=== PATIENT | female | born 1950 ===

== ENCOUNTER 2022-04-14 15:32 | Inpatient (IN) | payer MEDICARE ==
--- NOTE | 2022-04-14 15:44 | Emergency Department Report ---
HPI - General Time Seen by Provider: 04/14/22 15:34 - HPI HPI: Room 2 The patient is a 72-year-old female present with a chief complaint of diffuse weakness. EMS was called by family for patient complaining of weakness. EMS states upon arrival patient found to be hypoxic in the mid 80s and started on a nonrebreather. Attempted to have family assist him with neurologic exam but the patient did not follow commands. In the ED we attempted to use a language line to obtain a history from the patient but the patient does not answer or sometimes is very soft-spoken and does not give any audible answers. ED Past Medical Hx - Past Medical History Hx Hypertension: Yes - Surgical History Past Surgical History?: No - Family History Family history: no significant - Social History Smoking Status: Unknown if ever smoked ED Review of Systems ROS: Stated complaint: STROKE Other details as noted in HPI Comment: Unobtainable due to pts medical conditions Physical Exam - Physical Exam Physical Exam: GENERAL: The patient is well-developed well-nourished female lying on stretcher not appearing to be in acute distress. [] HEENT: Normocephalic. Atraumatic. Extraocular motions are intact. Patient has moist mucous membranes. NECK: Supple. Trachea midline CHEST/LUNGS: Clear to auscultation. There is no respiratory distress noted. HEART/CARDIOVASCULAR: Regular. There is no tachycardia. There is no gallop rub or murmur. ABDOMEN: Abdomen is soft, nontender. Patient has normal bowel sounds. There is no abdominal distention. SKIN: There is no rash. There is no edema. There is no diaphoresis. NEURO: The patient is awake and makes eye contact but is very soft-spoken. Patient does not follow commands. MUSCULOSKELETAL: There is no evidence of acute injury. ED Medical Decision Making - Lab Data Result diagrams: 04/14/22 16:16 04/14/22 16:16 - Radiology Data Radiology results: report reviewed (CT head, CTA brain, CTA neck), image revie wed (CT head, CTA brain, CTA neck) [facility] [address] [place] [address] Cat Scan Report Signed Patient: FILIPPO SIGALA MR#: [id number] : 1950 Acct:[id number] Age/Sex: 72 / F ADM Date: 04/14/22 Loc: ED Attending Dr: Ordering Physician: MEKA GUTIERREZ MD Date of Service: 04/14/22 Procedure(s): CT angio neck Accession Number(s): [id number] cc: MEKA GUTIERREZ MD CTA NECK WITH CONTRAST HISTORY: Weakness COMPARISON: None. TECHNIQUE: Routine CTA of the neck was performed. 3-D/MIP reformats were postprocessed. Percentage stenosis is determined by direct quantitative measurements of diseased internal carotid artery diameter compared with normal distal internal carotid artery reference segments or by criteria similar to NASCET where applicable.All CT scans at this location are performed using CT dose reduction for ALARA by means of automated exposure control CONTRAST: 100 ml of Omnipaque 350 FINDINGS: Venous contamination obscuring the details Aortic arch: No significant abnormality. Cervical vertebral arteries: No significant abnormality. Common carotid arteries: No significant abnormality. Carotid bifurcations: Normal Cervical internal carotid arteries: No significant abnormality. Additional findings: None. IMPRESSION: 1. No significant abnormality. CTA HEAD WITH CONTRAST TECHNIQUE: Routine non-contrast CT Head, CTA of the head and post-contrast CT Head are performed. 3-D/MIP reformats postprocessed. All CT scans at this location are performed using CT dose reduction for ALARA by means of automated exposure control CONTRAST: 100 ml of Omnipaque 350 FINDINGS: CTA Head: Intracranial vertebral arteries: No significant abnormality. Basilar artery: No significant abnormality. Posterior cerebral arteries: No significant abnormality. Right posterior communicating artery continues as right posterior cerebral artery Intracranial internal carotid arteries: No significant abnormality. Vascular calcification Anterior cerebral arteries: No significant abnormality. Middle cerebral arteries: No significant abnormality. Dural venous sinuses:Not optimally opacified. No significant abnormality. Additional findings: None. IMPRESSION: 1. No significant abnormality. Signer Name: Birdie Carrillo MD Signed: 04/14/2022 5:56 PM Workstation Name: [email or web address] Transcribed By: BS Dictated By: Birdie Pringle MD Electronically Authenticated By: Birdie Pringle MD Signed Date/Time: 04/14/221755 DD/ 48 TD/TT: Print Cancel [facility] [address] [place] [address] Cat Scan Report Signed Patient: FILIPPO SIGALA MR#: [id number] : 1950 Acct:[id number] Age/Sex: 72 / F ADM Date: 04/14/22 Loc: ED Attending Dr: Ordering Physician: MEKA GUTIERREZ MD Date of Service: 04/14/22 Procedure(s): CT head/brain wo con Accession Number(s): [id number] cc: MEKA GUTIERREZ MD NONENHANCED CT SCAN OF THE HEAD: INDICATION / CLINICAL INFORMATION: 72 years Female; AMS. TECHNIQUE: Routine CT head without contrast. All CT scans at this location are performed using CT dose reduction for ALARA by means of automated exposure control. Some of the images are marred by motion related artifacts COMPARISON: None. FINDINGS: BRAIN / INTRACRANIAL CONTENTS: No intracerebral hemorrhage or stroke mimics No chronic intracranial sequela from the trauma No acute hemorrhage, mass effect, midline shift, hydrocephalus, or acute, large territorial infarct. No chronic infarct or encephalomalacia. Normal brain volume and ventricular/sulcal size for age. Confluent periventricular low-attenuation areas in both cerebral hemispheres due to chronic small vessel disease CRANIOCERVICAL JUNCTION: No significant abnormality. ORBITS: No significant abnormality of visualized orbits. SINUSES / MASTOIDS: No significant abnormality of the visualized paranasal sinuses or mastoid air cells. ADDITIONAL FINDINGS: None. IMPRESSION: Motion related artifacts obscuring the details No intracerebral hemorrhage or stroke mimics No chronic sequela from the trauma Extensive periventricular low-attenuation areas due to chronic small vessel disease Signer Name: Birdie Carrillo MD Signed: 04/14/2022 5:49 PM Workstation Name: [email or web address] Transcribed By: BS Dictated By: Birdie Pringle MD Electronically Authenticated By: Birdie Pringle MD Signed Date/Time: 04/14/221748 DD/ 45 TD/TT: - Differential Diagnosis UTI, pneumonia, electrolyte imbalance, hypothyroidism, ICH Critical care attestation.: If time is entered above; I have spent that time in minutes in the direct care of this critically ill patient, excluding procedure time. ED Disposition Clinical Impression: Altered mental status, Hyponatremia Disposition: ADMITTED INPATIENT Is pt being admited?: Yes Does the pt Need Aspirin: No Condition: Fair Time of Disposition: 18:27 (Care transferred to hospitalist (Dr. Nix))
--- NOTE | 2022-04-14 16:03 | Consultation ---
History of Present Illness Consult date: 04/14/22 History of present illness: [facility] Consult Note # Demographics Consult Type: Acute Stroke Level 1 (0-4.5 hrs) Patient Location: Emergency Room First Name: Rika Last Name: Urban Date of : 1950 Age: 72 Gender: Female Facility: [facility] Time of Initial Page ( Time): 04/14/2022, 15:15 Time of Return Call ( Time): 04/14/2022, 15:16 # HPI Chief Complaint: altered mental state weakness (focal) Left-sided weakness two weeks ago with resolution History: Patient had difficulties getting out of bed for the past two days. Last Known Normal: I have collected independent history specific to time last normal or last known well. We have collaborated with the provider and at this time, we have the most current timeline with the information that is available. 2 days Duration: intermittent days Possible Thrombolytic candidate: not on warfarin or NOACs # Scores Time of exam and NIHSS ( Time): 04/14/2022, 15:50 Level of Consciousness 1a: [1] = Not alert; but arousable by minor stim LOC Questions 1b: [2] = Answers neither correctly LOC Commands 1c: [0] = Performs both tasks correctly Best Gaze 2: [0] = Normal Visual 3: [0] = No visual loss Facial Palsy 4: [0] = Normal symmetrical movements Motor Arm Left 5a: [0] = No drift Motor Arm Right 5b: [0] = No drift Motor Leg Left 6a: [0] = No drift Motor Leg Right 6b: [0] = No drift Limb Ataxia 7: [0] = Absent Sensory 8: [0] = Normal Best Language 9: [0] = No aphasia Dysarthria 10: [0] = Normal Extinction and Inattention 11: [0] = No abnormality NIHSS Total: 3 # Exam SBP: 210 DBP: 110 Mental Status: awake follows commands sleepy Language: normal speech # ROS Pulmonary: shortness of breath Cardiovascular: no chest pain # PMH-FH-SH Past Medical History: hypertension Medications: antihypertensive aspirin Allergies: NKDA # Data Glucose: 120 per EMS - 130 # Assessment Impression: Altered Mental Status Toxic/ metabolic encephalopathy versus stroke # Plan Thrombolytic/Intervention: NOT IV Thrombolysis or IA Intervention candidate Thrombolytic Exclusion (< 3 hour window): time of onset unclear Thrombolytic Exclusion: > 4.5 hours Labs: CBC comprehensive metabolic panel ESR hemoglobin A1c lipid panel troponin TSH urine drug screen ua Infectious work-up Imaging: (urgency: STAT): CT Head without contrast CT Angiogram Head and CT Angiogram Neck AND call back with results if abnormal Imaging: (urgency: routine): MRI Brain without contrast Diagnostic Test: echo without bubble study EEG Therapy/Evaluation: NPO until swallow evaluation PT/OT evaluation speech/swallow consultation Medication: Continue outpatient medication regimen pending diagnostic results. DVT Prophylaxis: SCD chemical DVT prophylaxis Other: telemetry monitoring would not pursue stroke work-up if MRI is negative I have discussed my recommendations with the referring provider Disposition: admit Physical Examination - Vital Signs Vital Signs: Vital Signs Temp Pulse Resp BP Pulse Ox 98.9 F 64 20 218/103 100 04/14/22 15:42 04/14/22 15:42 04/14/22 15:42 04/14/22 15:42 04/14/22 15:42
--- NOTE | 2022-04-14 16:05 | XRay Report ---
CHEST 1 VIEW 04/14/2022 3:46 PM INDICATION / CLINICAL INFORMATION: Hypoxia. COMPARISON: None available. FINDINGS: SUPPORT DEVICES: None. HEART / MEDIASTINUM: The heart size is borderline with a left ventricular configuration. Pulmonary va sculature is normal. The aorta is mildly tortuous without evidence of aneurysm. LUNGS / PLEURA: No significant pulmonary or pleural abnormality. No pneumothorax. ADDITIONAL FINDINGS: No significant additional findings. IMPRESSION: No acute findings. Signer Name: Axel Flores MD Signed: 04/14/2022 4:01 PM Workstation Name: [id number]
[2022-04-14 16:31] LABS: Basophils % (Auto) 0.3 % (0.0-1.8); Eosinophils % (Auto) 0.8 % (0.0-4.3); Hematocrit 38.3 % (30.3-42.9); Hemoglobin 13.7 gm/dl (10.1-14.3); Lymphocytes % (Auto) 30.1 % (13.4-35.0); Mean Corpuscular HGB Conc 36 % (30-34); Mean Corpuscular Volume 90 fl (79-97); Monocytes # (Auto) 0.4 K/mm3 (0.0-0.8); Monocytes % (Auto) 12.4 % (0.0-7.3); Platelet Count 200 K/mm3 (140-440); Red Blood Count 4.25 M/mm3 (3.65-5.03); Red Cell Distribution Width 13.6 % (13.2-15.2)
[2022-04-14 16:39] LABS: INR 0.9 (0.87-1.13)
[2022-04-14 16:40] LABS: Partial Thromboplastin Time 35.5 Sec. (24.2-36.6)
[2022-04-14 16:53] LABS: Alanine Aminotransferase 11 units/L (7-56); Blood Urea Nitrogen 16 mg/dL (7-17); Hemolysis Index 4
[2022-04-14 16:58] LABS: BUN/Creatinine Ratio 27
[2022-04-14 17:25] LABS: Creatine Kinase MB 2.2 ng/mL (0.0-4.0)
[2022-04-14] MEDS ORDERED: SODIUM CHLORIDE 0.9% 1000 ML 1,000 ML IV ONE ×2 (17:28)
[2022-04-14] MEDS ORDERED: cloNIDine 0.2 MG TAB PO ONE (17:38)
--- NOTE | 2022-04-14 17:54 | Cat Scan Report ---
NONENHANCED CT SCAN OF THE HEAD: INDICATION / CLINICAL INFORMATION: 72 years Female; AMS. TECHNIQUE: Routine CT head without contrast. All CT scans at this location are performed using CT dos e reduction for ALARA by means of automated exposure control. Some of the images are marred by motion related artifacts COMPARISON: None. FINDINGS: BRAIN / INTRACRANIAL CONTENTS: No intracerebral hemorrhage or stroke mimics No chronic intracranial sequela from the trauma No acute hemorrhage, mass effect, midline shift, hydrocephalus, or acute, large territorial infarct. No chronic infarct or encephalomalacia. Normal brain volume and ventricular/sulcal size for age. Conf luent periventricular low-attenuation areas in both cerebral hemispheres due to chronic small vessel disease CRANIOCERVICAL JUNCTION: No significant abnormality. ORBITS: No significant abnormality of visualized orbits. SINUSES / MASTOIDS: No significant abnormality of the visualized paranasal sinuses or mastoid air edgar ls. ADDITIONAL FINDINGS: None. IMPRESSION: Motion related artifacts obscuring the details No intracerebral hemorrhage or stroke mimics No chronic sequela from the trauma Extensive periventricular low-attenuation areas due to chronic small vessel disease Signer Name: Birdie Carrillo MD Signed: 04/14/2022 5:49 PM Workstation Name: [email or web address]
--- NOTE | 2022-04-14 18:00 | Cat Scan Report ---
CTA NECK WITH CONTRAST HISTORY: Weakness COMPARISON: None. TECHNIQUE: Routine CTA of the neck was performed. 3-D/MIP reformats were postprocessed. Percentage s tenosis is determined by direct quantitative measurements of diseased internal carotid artery diamete r compared with normal distal internal carotid artery reference segments or by criteria similar to NA SCET where applicable.All CT scans at this location are performed using CT dose reduction for ALARA b y means of automated exposure control CONTRAST: 100 ml of Omnipaque 350 FINDINGS: Venous contamination obscuring the details Aortic arch: No significant abnormality. Cervical vertebral arteries: No significant abnormality. Common carotid arteries: No significant abnormality. Carotid bifurcations: Normal Cervical internal carotid arteries: No significant abnormality. Additional findings: None. IMPRESSION: 1. No significant abnormality. CTA HEAD WITH CONTRAST TECHNIQUE: Routine non-contrast CT Head, CTA of the head and post-contrast CT Head are performed. 3-D /MIP reformats postprocessed. All CT scans at this location are performed using CT dose reduction for ALARA by means of automated exposure control CONTRAST: 100 ml of Omnipaque 350 FINDINGS: CTA Head: Intracranial vertebral arteries: No significant abnormality. Basilar artery: No significant abnormality. Posterior cerebral arteries: No significant abnormality. Right posterior communicating artery continu es as right posterior cerebral artery Intracranial internal carotid arteries: No significant abnormality. Vascular calcification Anterior cerebral arteries: No significant abnormality. Middle cerebral arteries: No significant abnormality. Dural venous sinuses:Not optimally opacified. No significant abnormality. Additional findings: None. IMPRESSION: 1. No significant abnormality. Signer Name: Birdie Carrillo MD Signed: 04/14/2022 5:56 PM Workstation Name: [email or web address]
--- NOTE | 2022-04-14 18:28 | History and Physical Report ---
History of Present Illness Chief complaint: She is confused and weak History of present illness: 72 YO Female with Malnutrition, Vascular Dementia, Cerebral Atherosclerosis presents to ED for evaluation. Patient is confused and lethargic with diminished cognition at time my evaluation is unable to provide history. P atient history taken from EMS staff, ED staff, as well as the patient's son who is at bedside during exam and interview. As per son the patient has experienced increased weakness over the past 1 month resulting in multiple falls. Patient was found to have increased weakness today. EMS was notified and upon arrival the patient was found to be in distress and subsequent transported to [facility] for further care and evaluation of the aforementioned symptoms. The patient was seen and evaluated in the emergency department. All lab and imaging studies reviewed. Patient found to have blood pressure of 221/104 mmHg which is consistent with hypertensive emergency complicated by hypertensive encephalo tj, severe hyponatremia with a serum sodium of 113, metabolic encephalopathy, hypokalemia, and thyrotoxicosis. Patient admitted to ICU due to increased risk of worsening symptoms and for medical stabilization. Patient treated with IV fluid resuscitation therapy, as well as IV antihypertensive therapy. No reports of fever, chills, chest pain, palpitation, adductive cough, skin rash, recent co ntact, known exposure to COVID-19. No prior admission for review. No medication listed at time of admission for reconciliation. Advanced care planning conducted in ED. Critical care team consulted in ED. Nephrology team consulted in ED. Past History Past Medical History: other (See HPI) Past Surgical History: No surgical history, Other (Reviewed) Social history: single, lives with family. denies: smoking, alcohol abuse, prescription drug abuse Family history: hypertension Medications and Allergies Allergies Allergy/AdvReac Type Severity Reaction Status Date / Time No Known Allergies Allergy Unverified 04/14/22 17:04 Active Meds: Active Medications Sodium Chloride (Nacl 0.9% 1000 Ml) 1,000 mls @ 999 mls/hr IV ONCE ONE Stop: 04/14/22 18:28 Last Admin: 04/14/22 17:32 Dose: 999 mls/hr Sodium Chloride (Nacl 0.9% 1000 Ml) 1,000 mls @ 250 mls/hr IV ONCE ONE Stop: 04/14/22 21:27 Last Admin: 04/14/22 18:13 Dose: 250 mls/hr Review of Systems ROS unobtainable: due to mental status Exam - Constitutional Vitals: Temp Pulse Resp BP Pulse Ox 98 F 66 19 199/91 96 04/14/22 15:42 04/14/22 18:15 04/14/22 18:15 04/14/22 18:15 04/14/22 18:15 General appearance: Present: mild distress - EENT Eyes: Present: PERRL ENT: hearing intact, clear oral mucosa - Neck Neck: Present: supple, normal ROM - Respiratory Respiratory effort: normal Respiratory: bilateral: CTA - Cardiovascular Heart Sounds: Present: S1 & S2. Absent: rub, click - Extremities Extremities: pulses symmetrical, No edema Peripheral Pulses: within normal limits - Abdominal General gastrointestinal: Present: soft, non-tender, non-distended, normal bowel sounds Female genitourinary: Present: normal - Musculoskeletal Musculoskeletal: generalized weakness - Psychiatric Psychiatric: no appropriate mood/affect, no intact judgment & insight, no memory intact - Neurologic Neurologic: CNII-XII intact, no focal deficits, moves all extremities, no gait normal HEART Score - HEART Score Troponin: Troponin T < 0.010 ng/mL (0.00-0.029) 04/14/22 16:16 Results - Labs CBC & Chem 7: 04/14/22 16:16 04/14/22 16:16 Labs: Abnormal lab results 04/14/22 04/14/22 04/14/22 Range/Units 15:57 16:16 16:16 WBC 3.4 L (4.5-11.0) K/mm3 MCHC 36 H (30-34) % Forrest % (Auto) 12.4 H (0.0-7.3) % Lymph # (Auto) 1.0 L (1.2-5.4) K/mm3 Sodium 113 L* (137-145) mmol/L Potassium 3.2 L (3.6-5.0) mmol/L Chloride 75.6 L (98-107) mmol/L Glucose 153 H (65-100) mg/dL POC Glucose 130 H (70-105) mg/dL Ammonia (25-60) umol/L Total Protein 9.2 H (6.3-8.2) g/dL TSH (0.270-4.200) mlU/mL Free T4 (0.76-1.46) ng/dL 04/14/22 04/14/22 Range/Units 16:16 16:16 WBC (4.5-11.0) K/mm3 MCHC (30-34) % Forrest % (Auto) (0.0-7.3) % Lymph # (Auto) (1.2-5.4) K/mm3 Sodium (137-145) mmol/L Potassium (3.6-5.0) mmol/L Chloride (98-107) mmol/L Glucose (65-100) mg/dL POC Glucose (70-105) mg/dL Ammonia 14.0 L (25-60) umol/L Total Protein (6.3-8.2) g/dL TSH 5.070 H (0.270-4.200) mlU/mL Free T4 2.00 H (0.76-1.46) ng/dL Assessment and Plan - Patient Problems (1) Hypertensive emergency Current Visit: Yes Status: Acute Plan to address problem: CT head, neuro check, seizure precautions, IV antihypertensive therapy, monitor blood pressure q. nursing care protocol, The high probability of a clinically significant, sudden or life threatening deterioration of the [neuro, renal, endocrine, vascular] system(s) required my full and direct attention, intervention and personal management. The aggregate critical care time was [95] minutes. This time is in addition to time spent performing reported procedures but includes the following: [x] Data Review and interpretation [x] Patient assessment and monitoring of vital signs [x] Documentation [x] Medication orders and management (2) Hyponatremia syndrome Current Visit: Yes Status: Acute Plan to address problem: BMP, IV fluid resuscitation therapy, repeat BMP in a.m., seizure precautions, nephrology team consulted. (3) Metabolic encephalopathy Current Visit: Yes Status: Acute Plan to address problem: IV fluid resuscitation therapy, BMP, repeat BMP in a.m., supportive care. (4) Hypertensive encephalopathy syndrome Current Visit: Yes Status: Acute Plan to address problem: Monitor blood pressure every shift, neuro check, seizure precautions, continue medical management. (5) Hypokalemia Current Visit: Yes Status: Acute Plan to address problem: Repleted in ED. (6) Thyrotoxicosis Current Visit: Yes Status: Acute Plan to address problem: Supportive care, methimazole, repeat thyroid panel in AM. (7) Vascular dementia Current Visit: Yes Status: Acute Qualifiers: Dementia behavioral disturbance: without behavioral disturbance Qualified Code(s): F01.50 - Vascular dementia without behavioral disturbance Plan to address problem: Verbal prompting, verbal redirection, benzodiazepine therapy as clinically indicated. (8) Cerebral atherosclerosis Current Visit: Yes Status: Acute Plan to address problem: Risk factor reduction, antiplatelet therapy as clinic indicated. (9) Malnutrition Current Visit: Yes Status: Acute Qualifiers: Protein-calorie malnutrition severity: moderate Plan to address problem: Increase protein intake, dietary supplementation. (10) DVT prophylaxis Current Visit: Yes Status: Acute Plan to address problem: SCD to bilateral lower extremities while in bed (11) Advance care planning Current Visit: Yes Status: Acute Plan to address problem: Disease education done, care plan discussed, diagnoses, prognosis discussed, patient is full code. Patient family knowledges understanding and agreement with care plan, +30 minutes. (12) Preventative health care Current Visit: Yes Status: Acute Plan to address problem: Patient family counseled regarding home safety, balanced diet, outpatient follow-up with primary care physician for all age and risk factor appropriate screening test. +30 minutes.
[2022-04-14] MEDS ORDERED: IBUPROFEN 600 MG TAB PO PRN (18:37)
[2022-04-14] MEDS ORDERED: oxyCODONE /ACETAMINOPHEN 5-325MG TAB PO PRN (18:37)
[2022-04-14] MEDS ORDERED: HYDROmorphone 0.5 MG/0.5 ML INJ IV PRN (18:37)
--- NOTE | 2022-04-14 19:34 | Procedure Note ---
Date of procedure: 04/14/22 Pre-op diagnosis: Severe hyponatremia Post-op diagnosis: same Procedure: Right femoral vein triple-lumen catheter under ultrasound guidance The patient was prepped and draped in the usual sterile fashion. A timeout was taken with the patient's nurse at bedside to identify the correct patient, correct procedure, and the correct operative site. Local anesthesia obtained with 1% lidocaine. The Seldinger technique was utilized to localize the right femoral vein ultrasound guidance and advanced a seeker needle into the right femoral vein without difficulty. A guidewire was then advanced via the seeker needle into the right femoral vein and the seeker needle subsequently removed over the guidewire. A scalpel was used to incise the skin. A dilator was then passed over the guidewire into the right femoral vein and subsequently removed. A preflush triple-lumen catheter was then advanced over the guidewire into the right femoral vein and the guidewire subsequently removed. All 3 ports flush and drawl with ease. A Biopatch was placed at the insertion site. 3-0 silk suture was utilized to suture the triple-lumen catheter in place. A sterile dressing was placed over the triple-lumen catheter. Estimated blood loss minimal. Complications none. Anesthesia: local Surgeon: OCTAVIO CAAL Estimated blood loss: minimal Pathology: none Condition: critical Disposition: ICU
[2022-04-14] MEDS ORDERED: niCARdipine 50 MG in SODIUM CHLORIDE 0.9% 250ML 230 ML IV SCH (20:00)
[2022-04-14] MEDS: SODIUM CHLORIDE 0.9% 1000 ML 1,000 ML IV SCH (21:14)
[2022-04-14] MEDS: methIMAzole 5 MG TAB PO SCH (22:35)
[2022-04-15] MEDS: SODIUM CHLORIDE 0.9% 1000 ML 1,000 ML IV SCH ×2 (02:42→11:50)
[2022-04-15 04:58] LABS: Basophils % (Auto) 0.4 % (0.0-1.8); Eosinophils % (Auto) 0.7 % (0.0-4.3); Hematocrit 35.2 % (30.3-42.9); Hemoglobin 12.5 gm/dl (10.1-14.3); Lymphocytes # (Auto) 1.1 K/mm3 (1.2-5.4); Lymphocytes % (Auto) 23.6 % (13.4-35.0); Mean Corpuscular HGB Conc 36 % (30-34); Mean Corpuscular Volume 90 fl (79-97); Monocytes # (Auto) 0.6 K/mm3 (0.0-0.8); Monocytes % (Auto) 13.5 % (0.0-7.3); Platelet Count 150 K/mm3 (140-440); Red Blood Count 3.93 M/mm3 (3.65-5.03); Red Cell Distribution Width 13.5 % (13.2-15.2)
[2022-04-15] MEDS: methIMAzole 5 MG TAB PO SCH ×3 (05:06→21:36)
[2022-04-15 05:11] LABS: Blood Urea Nitrogen 12 mg/dL (7-17); Calcium 8.2 mg/dL (8.4-10.2); Hemolysis Index 8
[2022-04-15 05:23] LABS: BUN/Creatinine Ratio 24
[2022-04-15] MEDS: POTASSIUM CHLORIDE 20 MEQ 20 MEQ/100 ML BAG IV SCH ×4 (06:28→20:17)
[2022-04-15] MEDS ORDERED: hydrALAZINE 20 MG/1 ML INJ IV PRN (08:07)
[2022-04-15] MEDS: ENOXAPARIN 40 MG/0.4 ML INJ SUB-Q SCH (09:33)
[2022-04-15] MEDS ORDERED: FAMOTIDINE 20 MG/2 ML INJ IV SCH (10:00)
[2022-04-15 10:17] LABS: Bilirubin,Urine NEG (Negative); Blood,Urine NEG (Negative); Color,Urine Straw (Yellow); Urobilinogen,Urine < 2.0 mg/dL (<2.0)
[2022-04-15 10:19] LABS: WBC,Urine < 1.0 /HPF (0.0-6.0)
--- NOTE | 2022-04-15 10:34 | Progress Note ---
<YA SMART - Last Filed: 04/15/22 16:40> Assessment and Plan Assessment and plan: This is a 72-year-old female with known past medical history of HTN, vascular dementia, cerebral atherosclerosis, and malnutrition admitted for severe hyponatremia and Hypertensive emergency s/p cardene gtt Hospital Course to Date: 04/15: Drowsy but AAO, stable on RA. off cardene gtt this am, VSS. Remains on NS gtt, sodium back down to 113. 3% saline initiated at 20ml/hr, serial BMP Q4hr. Nephrology is also following. Tight BP control, PRN hydralazine for SBP greater than 160. Resume home meds when list is available. K repleted, monitor and replace electrolytes as needed. [facility] is also following. Assessment and Plan #Severe Hyponatremia - Presented with NA level of 113 - As per son the patient has experienced increased weakness over the past 1 month resulting in multiple falls - Probably due to dehydration. Patient appears cachetic, with dry oral mucosa - NS infusion initiated in the ED - Repeat labs with worsen Na level, 3% Saline gtt initiated - Serial BMP Q4hrs. Goal rate for sodium correction less than 10mEq in 24hrs - Nephrology consulted - Strict intake and output - Neuro check per protocol - Seizure precautions - Monitor and replace electrolytes as needed #Hypertensive Emergency - Presented with BP of 221/104, unclear if patient is compliant with meds - S/p Cardene gtt, gtt off overnight - BP stable this am - Continue blood pressure monitor per protocol - PRN Hydralazine to maintain SBP less than 160 - Son to bring home mds. Resume home meds once list is available #Acute Metabolic Encephalopathy #Vascular Dementia - Probably secondary to [id number] vs high BP - CT head with chronic small vessel disease. No acute abnormalities - S/p cardene gtt- BP controlled, now on 3% gtt initiated - Mentation improved per patient's son. Canadian speaking only - Tight BP control, maintain SBP less than 160 - Continue 3% saline for sodium correction less than 10mEq in 24hrs. Serial labd ordered - Verbal prompting, verbal redirection - Seizure, Aspiration, and Fall precautions - Avoid benzodiazepine to reduce the possibility of delirium - Maintenance of sleep-wake cycle #Thyrotoxicosis - elevated TSH/T4, patient acutely ill - Methimazole initiated - Follow up o thyroids panel #Severe Protein Caloric Malnutrition - Poor appetite per family - Increase protein intake, dietary supplementation - Nutrition consulted #GI/DVT Prophylaxis - PPI- Pepcid - Lovenox SubQ - SCD to bilateral lower extremities while in bed #Advance Care Planning - Disease education data, care plan, diagnoses, and prognosis were discussed with patient's son and spouse at the bedside. Patient is a FULL code. They acknowledged understanding and agreed with current care plan. The high probability of a clinically significant, sudden or life threatening deterioration of the [multiple] system(s) required my full and direct attention, intervention and personal management. The aggregate critical care time was [60] minutes. This time is in addition to time spent performing reported procedures but includes the following: [x] Data Review and interpretation [x] Patient assessment and monitoring of vital signs [x] Documentation [x] Medication orders and management Disposition Plan: ICU Total Time Spent with Patient (Minutes): 60 History Interval history: Patient seen and [facility] at [facility]. Drowsy but alert, maltese speaking only. Patient's son and spouse at the bedside. Reported that patient is drowsy but she is fully aware of what is going on, she was only forgetful to the date and time. Patient remains on NS gtt. Off cardene gtt, VSS. Hospitalist Physical - Constitutional Vitals: Temp Pulse Resp BP Pulse Ox 97.4 F L 45 L 11 L 155/66 99 04/15/22 07:41 04/15/22 09:00 04/15/22 09:00 04/15/22 09:00 04/15/22 09:00 General appearance: Present: no acute distress, cachectic - EENT Eyes: Present: PERRL ENT: hearing intact, poor dentition, other (Dry oral mucosa) - Neck Neck: Present: normal ROM - Respiratory Respiratory effort: normal Respiratory: bilateral: diminished - Cardiovascular Rhythm: regular Heart Sounds: Present: S1 & S2 - Extremities Extremities: no ischemia, pulses intact, pulses symmetrical Peripheral Pulses: within normal limits - Abdominal General gastrointestinal: soft, non-distended, normal bowel sounds - Integumentary Integumentary: Present: warm, dry - Psychiatric Psychiatric: appropriate mood/affect, cooperative, other (Drowsy ) - Neurologic Neurologic: moves all extremities, other (Drowsy) - Allied Health Allied health notes reviewed: nursing HEART Score - HEART Score Troponin: Troponin T < 0.010 ng/mL (0.00-0.029) 04/14/22 16:16 Results - Labs CBC & Chem 7: 04/15/22 04:38 04/15/22 Unknown Labs: Laboratory Last Values WBC 4.6 K/mm3 (4.5-11.0) 04/15/22 04:38 RBC 3.93 M/mm3 (3.65-5.03) 04/15/22 04:38 Hgb 12.5 gm/dl (10.1-14.3) 04/15/22 04:38 Hct 35.2 % (30.3-42.9) 04/15/22 04:38 MCV 90 fl (79-97) 04/15/22 04:38 MCH 32 pg (28-32) 04/15/22 04:38 MCHC 36 % (30-34) H 04/15/22 04:38 RDW 13.5 % (13.2-15.2) 04/15/22 04:38 Plt Count 150 K/mm3 (140-440) 04/15/22 04:38 Lymph % (Auto) 23.6 % (13.4-35.0) 04/15/22 04:38 [place] % (Auto) 13.5 % (0.0-7.3) H 04/15/22 04:38 Eos % (Auto) 0.7 % (0.0-4.3) 04/15/22 04:38 Baso % (Auto) 0.4 % (0.0-1.8) 04/15/22 04:38 Lymph # (Auto) 1.1 K/mm3 (1.2-5.4) L 04/15/22 04:38 [place] # (Auto) 0.6 K/mm3 (0.0-0.8) 04/15/22 04:38 Eos # (Auto) 0.0 K/mm3 (0.0-0.4) 04/15/22 04:38 Baso # (Auto) 0.0 K/mm3 (0.0-0.1) 04/15/22 04:38 Seg Neutrophils % 61.8 % (40.0-70.0) 04/15/22 04:38 Seg Neutrophils # 2.8 K/mm3 (1.8-7.7) 04/15/22 04:38 PT 13.1 Sec. (12.2-14.9) 04/14/22 16:16 INR 0.90 (0.87-1.13) 04/14/22 16:16 APTT 35.5 Sec. (24.2-36.6) 04/14/22 16:16 Sodium 116 mmol/L (137-145) L* 04/15/22 04:38 Potassium 2.8 mmol/L (3.6-5.0) L* 04/15/22 04:38 Chloride 82.8 mmol/L (98-107) L 04/15/22 04:38 Carbon Dioxide 24 mmol/L (22-30) 04/15/22 04:38 Anion Gap 12 mmol/L 04/15/22 04:38 BUN 12 mg/dL (7-17) 04/15/22 04:38 Creatinine 0.5 mg/dL (0.6-1.2) L 04/15/22 04:38 Estimated GFR > 60 ml/min 04/15/22 04:38 BUN/Creatinine Ratio 24 % 04/15/22 04:38 Glucose 98 mg/dL (65-100) 04/15/22 04:38 POC Glucose 130 mg/dL (70-105) H 04/14/22 15:57 Calcium 8.2 mg/dL (8.4-10.2) L 04/15/22 04:38 Magnesium 1.90 mg/dL (1.7-2.3) 04/14/22 16:16 Total Bilirubin 0.80 mg/dL (0.1-1.2) 04/14/22 16:16 AST 28 units/L (5-40) 04/14/22 16:16 ALT 11 units/L (7-56) 04/14/22 16:16 Alkaline Phosphatase 105 units/L (35-129) 04/14/22 16:16 Ammonia 14.0 umol/L (25-60) L 04/14/22 16:16 Total Creatine Kinase 69 units/L (30-135) 04/14/22 16:16 CK-MB (CK-2) 2.2 ng/mL (0.0-4.0) 04/14/22 16:16 CK-MB (CK-2) Rel Index 3.1 (0-4) 04/14/22 16:16 Troponin T < 0.010 ng/mL (0.00-0.029) 04/14/22 16:16 Total Protein 9.2 g/dL (6.3-8.2) H 04/14/22 16:16 Albumin 4.0 g/dL (3.9-5) 04/14/22 16:16 Albumin/Globulin Ratio 0.8 % 04/14/22 16:16 TSH 5.070 mlU/mL (0.270-4.200) H 04/14/22 16:16 Free T4 2.00 ng/dL (0.76-1.46) H 04/14/22 16:16 Urine Bilirubin Neg (Negative) 04/15/22 08:03 Urine RBC (Auto) 1.0 /HPF (0.0-6.0) 04/15/22 08:03 U Epithel Cells (Auto) < 1.0 /HPF (0-13.0) 04/15/22 08:03 Microbiology: Microbiology 04/14/22 16:16 Peripheral/Venous Blood Culture - Preliminary Culture in Progress 04/14/22 16:16 Peripheral/Venous Blood Culture - Preliminary Culture in Progress Rey/IV: Voiding Method External Female Catheter Active Medications - Current Medications Current Medications: Generic Name Dose Route Start Last Admin Trade Name Freq PRN Reason Stop Dose Admin Enoxaparin Sodium 40 mg 04/15/22 10:00 04/15/22 09:33 Enoxaparin 40 Mg/0.4 Ml Inj SUB-Q 40 mg QDAY ABDIAZIZ Administration Protocol Famotidine 20 mg 04/15/22 10:00 04/15/22 09:33 Famotidine 20 Mg/2 Ml Inj IV 04/15/22 20:00 20 mg QDAY ABDIAZIZ Administration Famotidine 20 mg 04/16/22 10:00 Famotidine 20 Mg Tab PO QDAY ABDIAZIZ Hydralazine HCl 10 mg 04/15/22 08:07 Hydralazine 20 Mg/1 Ml Inj IV Q4HR PRN Hypertension Sodium Chloride 1,000 mls @ 125 mls/hr 04/14/22 18:45 04/15/22 02:42 Nacl 0.9% 1000 Ml IV 125 mls/hr DIRECT ABDIAZIZ Administration Nicardipine HCl 50 mg/ Sodium 250 mls @ 25 mls/hr 04/14/22 20:00 04/14/22 23:03 Chloride IV 0 mg/hr TITR ABDIAZIZ 0 mls/hr Titration Protocol 5 MG/HR Methimazole 5 mg 04/14/22 22:00 04/15/22 05:06 Methimazole 5 Mg Tab PO 04/16/22 23:59 5 mg Q8HR ABDIAZIZ Administration Oxycodone/Acetaminophen 1 tab 04/14/22 18:37 Oxycodone /Acetaminophen 5-325mg Tab PO Q16H PRN Pain, Moderate (4-6) Sodium Chloride 10 ml 04/14/22 22:00 04/15/22 09:34 Sodium Chloride 0.9% 10 Ml Flush Syringe IV 10 ml BID ABDIAZIZ Administration Sodium Chloride 10 ml 04/14/22 18:37 Sodium Chloride 0.9% 10 Ml Flush Syringe IV PRN PRN LINE FLUSH <VLADIMIR ALBA - Last Filed: 04/16/22 07:06> Assessment and Plan Assessment and plan: I saw and evaluated the patient. I agree with the findings and the plan of care as documented in the Nurse Practitioner's~note, with the following corrections and additions. Hospitalist Physical - Constitutional Vitals: Temp Pulse Resp BP Pulse Ox 98.3 F 75 17 180/81 96 04/16/22 04:00 04/16/22 06:20 04/16/22 06:01 04/16/22 06:20 04/16/22 06:01 HEART Score - HEART Score Troponin: Troponin T < 0.010 ng/mL (0.00-0.029) 04/14/22 16:16 Results - Labs CBC & Chem 7: 04/16/22 05:00 04/16/22 05:00 Labs: Laboratory Last Values WBC 4.6 K/mm3 (4.5-11.0) 04/16/22 05:00 RBC 3.75 M/mm3 (3.65-5.03) 04/16/22 05:00 Hgb 12.3 gm/dl (10.1-14.3) 04/16/22 05:00 Hct 33.7 % (30.3-42.9) 04/16/22 05:00 MCV 90 fl (79-97) 04/16/22 05:00 MCH 33 pg (28-32) H 04/16/22 05:00 MCHC 37 % (30-34) H 04/16/22 05:00 RDW 13.8 % (13.2-15.2) 04/16/22 05:00 Plt Count 135 K/mm3 (140-440) L 04/16/22 05:00 Lymph % (Auto) 23.6 % (13.4-35.0) 04/15/22 04:38 [place] % (Auto) 13.5 % (0.0-7.3) H 04/15/22 04:38 Eos % (Auto) 0.7 % (0.0-4.3) 04/15/22 04:38 Baso % (Auto) 0.4 % (0.0-1.8) 04/15/22 04:38 Lymph # (Auto) 1.1 K/mm3 (1.2-5.4) L 04/15/22 04:38 [place] # (Auto) 0.6 K/mm3 (0.0-0.8) 04/15/22 04:38 Eos # (Auto) 0.0 K/mm3 (0.0-0.4) 04/15/22 04:38 Baso # (Auto) 0.0 K/mm3 (0.0-0.1) 04/15/22 04:38 Seg Neutrophils % 61.8 % (40.0-70.0) 04/15/22 04:38 Seg Neutrophils # 2.8 K/mm3 (1.8-7.7) 04/15/22 04:38 PT 13.1 Sec. (12.2-14.9) 04/14/22 16:16 INR 0.90 (0.87-1.13) 04/14/22 16:16 APTT 35.5 Sec. (24.2-36.6) 04/14/22 16:16 Sodium 120 mmol/L (137-145) L 04/16/22 05:00 Potassium 3.3 mmol/L (3.6-5.0) L 04/16/22 05:00 Chloride 88.7 mmol/L (98-107) L 04/16/22 05:00 Carbon Dioxide 18 mmol/L (22-30) L 04/16/22 05:00 Anion Gap 17 mmol/L 04/16/22 05:00 BUN 15 mg/dL (7-17) 04/16/22 05:00 Creatinine 0.5 mg/dL (0.6-1.2) L 04/16/22 05:00 Estimated GFR > 60 ml/min 04/16/22 05:00 BUN/Creatinine Ratio 30 % 04/16/22 05:00 Glucose 88 mg/dL (65-100) 04/16/22 05:00 POC Glucose 111 mg/dL (70-105) H 04/15/22 16:26 Osmolality 291 Mosm/kg 04/15/22 Unknown Uric Acid 2.3 mg/dL (3.5-7.6) L 04/15/22 Unknown Calcium 8.3 mg/dL (8.4-10.2) L 04/16/22 05:00 Phosphorus 3.00 mg/dL (2.5-4.5) 04/16/22 05:00 Magnesium 1.70 mg/dL (1.7-2.3) 04/16/22 05:00 Total Bilirubin 0.80 mg/dL (0.1-1.2) 04/14/22 16:16 AST 28 units/L (5-40) 04/14/22 16:16 ALT 11 units/L (7-56) 04/14/22 16:16 Alkaline Phosphatase 105 units/L (35-129) 04/14/22 16:16 Ammonia 14.0 umol/L (25-60) L 04/14/22 16:16 Total Creatine Kinase 69 units/L (30-135) 04/14/22 16:16 CK-MB (CK-2) 2.2 ng/mL (0.0-4.0) 04/14/22 16:16 CK-MB (CK-2) Rel Index 3.1 (0-4) 04/14/22 16:16 Troponin T < 0.010 ng/mL (0.00-0.029) 04/14/22 16:16 Total Protein 9.2 g/dL (6.3-8.2) H 04/14/22 16:16 Albumin 4.0 g/dL (3.9-5) 04/14/22 16:16 Albumin/Globulin Ratio 0.8 % 04/14/22 16:16 TSH 5.070 mlU/mL (0.270-4.200) H 04/14/22 16:16 Free T4 1.88 ng/dL (0.76-1.46) H 04/16/22 05:00 Urine Color Straw (Yellow) 04/15/22 08:03 Urine Turbidity Clear (Clear) 04/15/22 08:03 Urine pH 8.0 (5.0-7.0) H 04/15/22 08:03 Ur Specific [place] 1.017 (1.003-1.030) 04/15/22 08:03 Urine Protein 30 mg/dl mg/dL (Negative) 04/15/22 08:03 Urine Glucose (UA) Neg mg/dL (Negative) 04/15/22 08:03 Urine Ketones Neg mg/dL (Negative) 04/15/22 08:03 Urine Blood Neg (Negative) 04/15/22 08:03 Urine Nitrite Neg (Negative) 04/15/22 08:03 Urine Bilirubin Neg (Negative) 04/15/22 08:03 Urine Urobilinogen < 2.0 mg/dL (<2.0) 04/15/22 08:03 Ur Leukocyte Esterase Neg (Negative) 04/15/22 08:03 Urine WBC (Auto) < 1.0 /HPF (0.0-6.0) 04/15/22 08:03 Urine RBC (Auto) 1.0 /HPF (0.0-6.0) 04/15/22 08:03 U Epithel Cells (Auto) < 1.0 /HPF (0-13.0) 04/15/22 08:03 Urine Osmolality 448 Mosm/kg 04/15/22 13:42 Microbiology: Microbiology 04/14/22 16:16 Peripheral/Venous Blood Culture - Preliminary NO GROWTH AFTER 24 HOURS 04/14/22 16:16 Peripheral/Venous Blood Culture - Preliminary NO GROWTH AFTER 24 HOURS Rey/IV: Voiding Method External Female Catheter Active Medications - Current Medications Current Medications: Generic Name Dose Route Start Last Admin Trade Name Freq PRN Reason Stop Dose Admin Enoxaparin Sodium 40 mg 04/15/22 10:00 04/15/22 09:33 Enoxaparin 40 Mg/0.4 Ml Inj SUB-Q 40 mg QDAY ABDIAZIZ Administration Protocol Famotidine 20 mg 04/16/22 10:00 Famotidine 20 Mg Tab PO QDAY ABDIAZIZ Hydralazine HCl 10 mg 04/15/22 08:07 04/15/22 11:59 Hydralazine 20 Mg/1 Ml Inj IV 10 mg Q4HR PRN Administration Hypertension Hydralazine HCl 25 mg 04/15/22 17:00 04/16/22 06:20 Hydralazine 25 Mg Tab PO 25 mg Q8HR ABDIAZIZ Administration Sodium Chloride 1,000 mls @ 125 mls/hr 04/14/22 18:45 04/15/22 14:18 Nacl 0.9% 1000 Ml IV 0 mls/hr DIRECT ABDIAZIZ Infusion Nicardipine HCl 50 mg/ Sodium 250 mls @ 25 mls/hr 04/14/22 20:00 04/14/22 23:03 Chloride IV 0 mg/hr TITR ABDIAZIZ 0 mls/hr Titration Protocol 5 MG/HR Sodium Chloride 500 mls @ 20 mls/hr 04/15/22 13:00 04/15/22 23:03 Nacl 3% IV 04/16/22 13:59 20 mls/hr DIRECT ONE Infusion Methimazole 5 mg 04/14/22 22:00 04/16/22 06:20 Methimazole 5 Mg Tab PO 04/16/22 23:59 5 mg Q8HR ABDIAZIZ Administration Oxycodone/Acetaminophen 1 tab 04/14/22 18:37 Oxycodone /Acetaminophen 5-325mg Tab PO Q16H PRN Pain, Moderate (4-6) Sodium Chloride 10 ml 04/14/22 22:00 04/15/22 21:35 Sodium Chloride 0.9% 10 Ml Flush Syringe IV 10 ml BID ABDIAZIZ Administration Sodium Chloride 10 ml 04/14/22 18:37 Sodium Chloride 0.9% 10 Ml Flush Syringe IV PRN PRN LINE FLUSH
--- NOTE | 2022-04-15 11:27 | Consultation ---
History of Present Illness - Reason for Consult Consult date: 04/15/22 hyponatremia - History of Present Illness The patient is a 72 YO Italian Female with history of Malnutrition, Dementia and Cerebral Atherosclerosis who presented to [facility] ED 04/14/22 with generalized weakness. Patient non-verbal at the time of eval. Per son the patient has experienced increased weakness over the past 1 month resulting in multiple falls. No reports of fever, chills, chest pain, palpitation, adductive cough, skin rash, recent contact, known exposure to COVID-19. In the ED patient found to have blood pressure of 221/104 mmHg. Labs significant for Sodium of 113 and K 3.2. Patient was admitted to ICU with metabolic encephalopathy, hyponatremia, hypokalemia and hyperthyroidism. Nephrology team consulted for further evaluation of Hyponatremia. Past History Past Medical History: other (See HPI) Past Surgical History: No surgical history, Other (Reviewed) Social history: single, lives with family. denies: smoking, alcohol abuse, prescription drug abuse Family history: hypertension Medications and Allergies Allergies Allergy/AdvReac Type Severity Reaction Status Date / Time No Known Allergies Allergy Unverified 04/14/22 17:04 Active Meds: Active Medications Enoxaparin Sodium (Enoxaparin 40 Mg/0.4 Ml Inj) 40 mg SUB-Q QDAY ABDIAZIZ; Protocol Last Admin: 04/15/22 09:33 Dose: 40 mg Famotidine (Famotidine 20 Mg/2 Ml Inj) 20 mg IV QDAY ABDIAZIZ Stop: 04/15/22 20:00 Last Admin: 04/15/22 09:33 Dose: 20 mg Famotidine (Famotidine 20 Mg Tab) 20 mg PO QDAY ABDIAZIZ Hydralazine HCl (Hydralazine 20 Mg/1 Ml Inj) 10 mg IV Q4HR PRN PRN Reason: Hypertension Sodium Chloride (Nacl 0.9% 1000 Ml) 1,000 mls @ 125 mls/hr IV DIRECT ABDIAZIZ Last Admin: 04/15/22 02:42 Dose: 125 mls/hr Nicardipine HCl 50 mg/ Sodium (Chloride) 250 mls @ 25 mls/hr IV TITR ABDIAZIZ; Protocol Last Titration: 04/14/22 23:03 Dose: 0 mg/hr, 0 mls/hr Methimazole (Methimazole 5 Mg Tab) 5 mg PO Q8HR ABDIAZIZ Stop: 04/16/22 23:59 Last Admin: 04/15/22 05:06 Dose: 5 mg Oxycodone/Acetaminophen (Oxycodone /Acetaminophen 5-325mg Tab) 1 tab PO Q16H PRN PRN Reason: Pain, Moderate (4-6) Sodium Chloride (Sodium Chloride 0.9% 10 Ml Flush Syringe) 10 ml IV BID ABDIAZIZ Last Admin: 04/15/22 09:34 Dose: 10 ml Sodium Chloride (Sodium Chloride 0.9% 10 Ml Flush Syringe) 10 ml IV PRN PRN PRN Reason: LINE FLUSH Review of Systems ROS unobtainable: due to mental status Exam - Vital Signs Vital signs: Vital Signs Temp Pulse Resp BP Pulse Ox 98.9 F 64 20 218/103 100 04/14/22 15:42 04/14/22 15:42 04/14/22 15:42 04/14/22 15:42 04/14/22 15:42 Results - Lab Results 04/15/22 04:38 04/15/22 Unknown Most recent lab results Calcium 8.2 mg/dL (8.4-10.2) L 04/15/22 04:38 Magnesium 1.90 mg/dL (1.7-2.3) 04/14/22 16:16 Assessment and Plan 1. 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 Urine and Serum Osm ordered. Patient is on IV NS. Plan to start on 3% saline due to persistent hyponatremia. Monitor Sodium level closely, Q4 Sodium level ordered. 2. FEN: Hypokalemia, replete K. Replete lytes as needed. Monitor lytes and volume status. 3. Hypertensive Emergency: Presented with BP of 221/104, unclear if patient is compliant with meds. S/p Cardene gtt, gtt off overnight. Monitor BP and adjust meds as needed. 4. Acute Metabolic Encephalopathy, POA: H/o Vascular Dementia. CT head with chronic small vessel disease, no acute abnormalities. Monitor. 5. Hyperthyroidism: Elevated TSH/T4. Methimazole. Monitor. 6. Severe Protein Caloric Malnutrition, POA: Nutrition consult. Subjective: Patient was seen and examined at the bedside. Examination: General appearance: well-developed, emaciated, appears stated age, no distress HEENT: atraumatic, no icterus, R cornea hazy with conjunctival injection Neck: trachea midline Respiratory: ctab Heart: S1S2, regular, no murmur Abdomen: soft, bowel sounds heard, NT Integumentary: no obvious rash Neurologic: somnolent, generalized weakness Ext: no edema
--- NOTE | 2022-04-15 11:50 | Consultation ---
History of Present Illness Consult date: 04/15/22 Requesting physician: OCTAVIO CAAL Reason for consult: other (Hypertensive Emergency) History of present illness: PULMONARY/CCM CONSULT NOTE (Full dictation # [id number]) Please see dictated notes for full details Past History Past Medical History: other (See HPI) Past Surgical History: No surgical history, Other (Reviewed) Social history: single, lives with family. denies: smoking, alcohol abuse, pr escription drug abuse Family history: hypertension Medications and Allergies Allergies Allergy/AdvReac Type Severity Reaction Status Date / Time No Known Allergies Allergy Unverified 04/14/22 17:04 Active Meds: Active Medications Enoxaparin Sodium (Enoxaparin 40 Mg/0.4 Ml Inj) 40 mg SUB-Q QDAY ABDIAZIZ; Protocol Last Admin: 04/15/22 09:33 Dose: 40 mg Famotidine (Famotidine 20 Mg/2 Ml Inj) 20 mg IV QDAY ABDIAZIZ Stop: 04/15/22 20:00 Last Admin: 04/15/22 09:33 Dose: 20 mg Famotidine (Famotidine 20 Mg Tab) 20 mg PO QDAY ABDIAZIZ Hydralazine HCl (Hydralazine 20 Mg/1 Ml Inj) 10 mg IV Q4HR PRN PRN Reason: Hypertension Sodium Chloride (Nacl 0.9% 1000 Ml) 1,000 mls @ 125 mls/hr IV DIRECT ABDIAZIZ Last Admin: 04/15/22 02:42 Dose: 125 mls/hr Nicardipine HCl 50 mg/ Sodium (Chloride) 250 mls @ 25 mls/hr IV TITR ABDIAZIZ; Protocol Last Titration: 04/14/22 23:03 Dose: 0 mg/hr, 0 mls/hr Methimazole (Methimazole 5 Mg Tab) 5 mg PO Q8HR ABDIAZIZ Stop: 04/16/22 23:59 Last Admin: 04/15/22 05:06 Dose: 5 mg Oxycodone/Acetaminophen (Oxycodone /Acetaminophen 5-325mg Tab) 1 tab PO Q16H PRN PRN Reason: Pain, Moderate (4-6) Sodium Chloride (Sodium Chloride 0.9% 10 Ml Flush Syringe) 10 ml IV BID ABDIAZIZ Last Admin: 04/15/22 09:34 Dose: 10 ml Sodium Chloride (Sodium Chloride 0.9% 10 Ml Flush Syringe) 10 ml IV PRN PRN PRN Reason: LINE FLUSH Physical Examination Vital signs: Vital Signs Temp Pulse Resp BP Pulse Ox 98.9 F 64 20 218/103 100 04/14/22 15:42 04/14/22 15:42 04/14/22 15:42 04/14/22 15:42 04/14/22 15:42 Results - Laboratory Findings CBC and BMP: 04/15/22 04:38 04/15/22 12:00 PT/INR, D-dimer PT 13.1 Sec. (12.2-14.9) 04/14/22 16:16 INR 0.90 (0.87-1.13) 04/14/22 16:16 Abnormal lab findings: Abnormal Labs 04/14/22 04/14/22 04/14/22 15:57 16:16 16:16 WBC 3.4 L MCHC 36 H [place] % (Auto) 12.4 H Lymph # (Auto) 1.0 L Sodium 113 L* Potassium 3.2 L Chloride 75.6 L Creatinine Glucose 153 H POC Glucose 130 H Calcium Ammonia Total Protein 9.2 H TSH Free T4 Urine pH 04/14/22 04/14/22 04/15/22 16:16 16:16 04:38 WBC MCHC 36 H [place] % (Auto) 13.5 H Lymph # (Auto) 1.1 L Sodium Potassium Chloride Creatinine Glucose POC Glucose Calcium Ammonia 14.0 L Total Protein TSH 5.070 H Free T4 2.00 H Urine pH 04/15/22 04/15/22 04/15/22 04:38 08:03 11:32 WBC MCHC [place] % (Auto) Lymph # (Auto) Sodium 116 L* Potassium 2.8 L* Chloride 82.8 L Creatinine 0.5 L Glucose POC Glucose 109 H Calcium 8.2 L Ammonia Total Protein TSH Free T4 Urine pH 8.0 H
[2022-04-15 12:38] LABS: BUN/Creatinine Ratio 30; Blood Urea Nitrogen 12 mg/dL (7-17); Calcium 8.2 mg/dL (8.4-10.2); Hemolysis Index 129
[2022-04-15] MEDS ORDERED: SODIUM CHLORIDE 3% 500 ML IV ONE (13:00)
[2022-04-15 17:30] LABS: Blood Urea Nitrogen 12 mg/dL (7-17); Calcium 8.3 mg/dL (8.4-10.2); Hemolysis Index 11
[2022-04-15 17:31] LABS: BUN/Creatinine Ratio 30
[2022-04-15 18:36] LABS: Blood Urea Nitrogen 12 mg/dL (7-17); Calcium 8.3 mg/dL (8.4-10.2); Hemolysis Index 8
[2022-04-15 18:46] LABS: BUN/Creatinine Ratio 30
[2022-04-15] MEDS: hydrALAZINE 25 MG TAB PO SCH ×2 (21:34→21:35)
[2022-04-15 22:47] LABS: Blood Urea Nitrogen 13 mg/dL (7-17); Calcium 8.3 mg/dL (8.4-10.2); Hemolysis Index 15
[2022-04-15 22:54] LABS: BUN/Creatinine Ratio 26
--- NOTE | 2022-04-16 00:03 | Consultation ---
DATE OF CONSULTATION: 04/15/2022 PULMONARY CRITICAL CARE CONSULT NOTE CONSULTING PHYSICIAN: Dr. Isaac Nix. REASON FOR CONSULTATION: Hypertensive emergency. CHIEF COMPLAINT AND HISTORY OF PRESENT ILLNESS: The patient is a now 72-year-old female with past medical history significant amongst other things for a diagnosis of malnutrition, vascular dementia, who was brought into the Emergency Room confused and lethargic. According to the EMS staff, the patient had experienced increasing weakness over the past month, resulting in multiple falls. She was found with a similar presentation today. EMS found her in distress. She was brought into the Emergency Room. In the Emergency Room, blood pressure was 221/104 mmHg. She was also found to have severe hyponatremia with a serum sodium 113. She was hypokalemic. There is history of thyrotoxicosis. She was admitted to the Intensive Care Unit and we are asked to assist with management. She had been given some IV fluid resuscitation. I believe with normal saline. When I stopped by to see her, she was resting in bed. She was breathing without significant respiratory distress. She was on room air with good O2 saturations. When I asked if she was in pain, she complained of some pain in the right lower quadrant region. I do not have any history of vomiting or overt aspiration since she has been here. This really is as much of the history of presentation as I have. PAST MEDICAL HISTORY: Again, protein calorie malnutrition, vascular dementia, cerebrovascular atherosclerosis. PAST SURGICAL HISTORY: Unknown. MEDICATIONS: She was on at the time I stopped by to see her according to the medication administration record included the following: Lovenox 40 mg subcutaneous daily, Pepcid 20 mg IV daily or 20 mg p.o. daily depending on swallowing ability, hydralazine 25 mg IV q. 4 hours p.r.n., elevated systolic blood pressures, methimazole 5 mg p.o. q. 8 hours, nicardipine drip had been going at 5 mg per hour. Percocet 5/325 one tablet p.o. q. 16 hours p.r.n. moderate pain. ALLERGIES: No known drug allergies. DIET: Thin lady, cachectic-looking lady, acute weight loss or gain history is unknown. FAMILY AND SOCIAL HISTORY: Lives with her family. They denied alcohol, tobacco, or illicit drug use or abuse. FAMILY HISTORY: Otherwise significant for hypertension. REVIEW OF SYSTEMS: Difficult to obtain secondary to the patient's medical and mental condition. Since she has been here, no gross hematochezia or melena, no gross hematuria, no hematemesis, no hemoptysis. She denies chest pain. No witnessed seizures. Review of systems otherwise unobtainable or as in body of history above. PHYSICAL EXAMINATION: VITAL SIGNS: On presentation, she was afebrile, temperature 98.9 degrees Fahrenheit, pulse of 64, respiratory rate of 20, blood pressure 218/103, O2 sats were 98% on room air. She has remained afebrile since. GENERAL: She is a petite, thin lady. Normocephalic, atraumatic. Talking to me in full sentences with normal respiratory effort at rest. HEAD, EYES, EARS, NOSE AND THROAT: Anicteric. No conjunctival erythema. 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 Grossly, there were no palpable lymph nodes in supraclavicular or submandibular lymph node chains. LUNGS: Auscultation of both lung [place] unremarkable. She has good bilateral air movement. No wheezing. HEART: Sounds 1 and 2 are heard, regular rate and rhythm at the time of my evaluation without overt rubs or murmurs. ABDOMEN: Soft, flat, bowel sounds are positive. Mild right lower quadrant tenderness. No palpable hepatosplenomegaly. EXTREMITIES: Without overt digital clubbing or cyanosis, no pedal edema. Pedal pulses are 2+ bilaterally. NEUROLOGIC: Left pupil was about 4 mm, round, reactive to light. Extraocular muscle movements appeared intact. She moved all 4 extremities spontaneously. SKIN: Normal turgor in the areas examined without overt cellulitis or rash. Please see the wound care nurses' notes for full description of her skin. PSYCHIATRIC: Mood was normal. Affect was appropriate. She had intact judgment and insight. LABORATORY DATA: From my review, admission, white cell count 3400, hemoglobin 13.7, hematocrit 38.3, platelet count 200. No manual differential. INR within normal limits. Serum sodium was 113, potassium 3.2, chloride 76, bicarbonate 23, BUN 16, creatinine 0.6, glucose was 153. Liver function test within normal limits. Ammonia within normal limits. TSH elevated at 5.07, free T4 elevated at 2.0. Urinalysis was negative for nitrites and leukocyte esterase. Two sets of blood cultures are no growth to date. RADIOGRAPHIC STUDIES: Chest x-ray was done. I have reviewed the chest x-ray. She does have cardiomegaly. Aorta is uncoiled. No acute findings, though a CT scan of the head was done, it was read as motion related artifacts, no intracerebral hemorrhage or stroke mimics. No obvious traumatic changes, chronic small vessel disease. CTA was done of the neck: No significant abnormality. CT of the head, no significant abnormality. ASSESSMENT: 1. Acute toxic metabolic encephalopathy. 2. Severe hyponatremia. 3. Hypertensive emergency. 4. Hypokalemia. 5. Hypothyroidism. 6. History of vascular dementia. 7. History of cerebrovascular atherosclerosis. 8. Protein calorie malnutrition. 9. Mild hypokalemia at presentation. PLAN: Blood pressure is doing better now. She is off the Cardene drip. She has been managed with normal saline; however, the serum sodium is not improved, it went up to 116, is back down to 113. I have discussed with the buffer nickel. We will put her on hypertonic saline 3% saline were run to 20 mL per hour for 500 mL bag. We will get serial BMPs q. 4 hours to ensure that there is no over correction of the serum sodium. The initial plan will be to correct it by about 4-6 mEq per liter in the next 24 hours. Further interventions will depend on her response to the 3% saline. Supplemental oxygen as necessary will be offered to keep sats greater than or equal to 90%. Electrolytes be monitored and corrected. We will continue the methimazole for now. She is appropriately on GI prophylaxis as well as DVT prophylaxis. Flu and pneumonia vaccination will be addressed per protocol. Thank you very much for the consult. We will follow along and make further recommendations as picture progresses/becomes clearer. She is critically ill at a high risk of from Endocrine, Nephrology and neurologic system decompensation. At this time, I spent about 35-40 minutes of critical care time without overlap and excluding any procedural time that may be necessary. TID: [id number] RECEIPT: [id number] [facility]
[2022-04-16 02:42] LABS: Blood Urea Nitrogen 14 mg/dL (7-17); Calcium 8.3 mg/dL (8.4-10.2); Hemolysis Index 21
[2022-04-16 02:55] LABS: BUN/Creatinine Ratio 28
[2022-04-16 05:32] LABS: Mean Corpuscular HGB Conc 37 % (30-34); Mean Corpuscular Volume 90 fl (79-97); Red Blood Count 3.75 M/mm3 (3.65-5.03); Red Cell Distribution Width 13.8 % (13.2-15.2)
[2022-04-16 05:37] LABS: Hematocrit 33.7 % (30.3-42.9); Hemoglobin 12.3 gm/dl (10.1-14.3); Platelet Count 135 K/mm3 (140-440)
[2022-04-16 05:54] LABS: Blood Urea Nitrogen 15 mg/dL (7-17); Calcium 8.3 mg/dL (8.4-10.2); Hemolysis Index 8
[2022-04-16 05:57] LABS: BUN/Creatinine Ratio 30
[2022-04-16] MEDS ORDERED: POTASSIUM CHLORIDE 10 MEQ 10 MEQ/100 ML BAG IV ONE (06:01)
[2022-04-16] MEDS: methIMAzole 5 MG TAB PO SCH ×3 (06:20→21:08)
[2022-04-16] MEDS: hydrALAZINE 25 MG TAB PO SCH (06:20)
[2022-04-16] MEDS ORDERED: POTASSIUM CHLORIDE ER 20 MEQ TAB PO SCH ×2 (09:00→19:00)
[2022-04-16] MEDS ORDERED: MAGNESIUM SULFATE 2 GM/50 ML BAG IV SCH (09:00)
--- NOTE | 2022-04-16 09:50 | Progress Note ---
Assessment and Plan Adult Failure To Thrive (AFTT) - Improving clinical status. Resume po feed to include Dietary Supplements. May need appetite stimulant if necessary Electrolyte Imbalance - Continue IVF NS & f/u improving HypoNa, would hopefully improve further on starting po intake. Avoid free water. Replenish K, f/u mild Acidosis, Mg, Phos HTN - Adjust meds for better BP Hyperthyroidism - F/u labs on Mehtimazole Subjective Date of service: 04/16/22 Interval history: Improving clinical status, awake & verbally responsive Objective - Vital Signs Vital signs: Vital Signs - 12hr 04/15/22 04/15/22 04/15/22 22:00 22:31 23:00 Temperature Pulse Rate 78 93 H 88 Pulse Rate [ From Monitor] Respiratory 19 18 18 Rate Blood Pressure 166/80 145/80 161/74 O2 Sat by Pulse 96 97 97 Oximetry 04/15/22 04/15/22 04/16/22 23:11 23:30 00:00 Temperature 98.1 F Pulse Rate 82 84 81 Pulse Rate [ 81 From Monitor] Respiratory 18 19 16 Rate Blood Pressure 161/74 151/79 164/77 O2 Sat by Pulse 98 97 97 Oximetry 04/16/22 04/16/22 04/16/22 00:30 01:00 01:30 Temperature Pulse Rate 83 81 82 Pulse Rate [ From Monitor] Respiratory 16 17 18 Rate Blood Pressure 163/83 171/83 166/80 O2 Sat by Pulse 96 96 95 Oximetry 04/16/22 04/16/22 04/16/22 02:01 02:30 03:01 Temperature Pulse Rate 78 80 75 Pulse Rate [ From Monitor] Respiratory 19 16 17 Rate Blood Pressure 151/77 161/81 166/76 O2 Sat by Pulse 96 96 95 Oximetry 04/16/22 04/16/22 04/16/22 03:30 04:00 04:30 Temperature 98.3 F Pulse Rate 78 84 77 Pulse Rate [ 84 From Monitor] Respiratory 15 18 17 Rate Blood Pressure 164/84 167/88 174/79 O2 Sat by Pulse 97 97 95 Oximetry 04/16/22 04/16/22 04/16/22 05:01 05:31 06:01 Temperature Pulse Rate 83 78 75 Pulse Rate [ From Monitor] Respiratory 18 16 17 Rate Blood Pressure 175/84 179/91 180/81 O2 Sat by Pulse 95 96 96 Oximetry 04/16/22 04/16/22 04/16/22 06:20 06:31 07:00 Temperature Pulse Rate 75 76 79 Pulse Rate [ From Monitor] Respiratory 16 14 Rate Blood Pressure 180/81 175/82 171/84 O2 Sat by Pulse 96 97 Oximetry 04/16/22 04/16/22 04/16/22 07:13 07:30 08:00 Temperature 98.0 F 97.9 F Pulse Rate 75 Pulse Rate [ 89 From Monitor] Respiratory 14 19 Rate Blood Pressure 165/81 O2 Sat by Pulse 97 95 Oximetry 04/16/22 04/16/22 08:01 08:30 Temperature Pulse Rate 89 91 H Pulse Rate [ From Monitor] Respiratory 19 19 Rate Blood Pressure 167/78 172/87 O2 Sat by Pulse 95 96 Oximetry - General Appearance General appearance: other (Awake & verbally responsive) EENT: PERRL, hearing intact Neck: no JVD Respiratory: Present: Other (Good air entry) Cardiology: regular, S1S2 Gastrointestinal: no tenderness, other (Soft) Integumentary: warm and dry Neurologic: no focal deficit Psychiatric: mood/affect appropriate - Lab 04/16/22 05:00 04/16/22 05:00 Most recent lab results Calcium 8.3 mg/dL (8.4-10.2) L 04/16/22 05:00 Phosphorus 3.00 mg/dL (2.5-4.5) 04/16/22 05:00 Magnesium 1.70 mg/dL (1.7-2.3) 04/16/22 05:00 Medications & Allergies - Medications Allergies/Adverse Reactions: Allergies No Known Allergies Allergy (Unverified 04/14/22 17:04) Active Medications: Generic Name Dose Route Start Last Admin Trade Name Freq PRN Reason Stop Dose Admin Enoxaparin Sodium 40 mg 04/15/22 10:00 04/15/22 09:33 Enoxaparin 40 Mg/0.4 Ml Inj SUB-Q 40 mg QDAY ABDIAZIZ Administration Protocol Famotidine 20 mg 04/16/22 10:00 Famotidine 20 Mg Tab PO QDAY ABDIAZIZ Hydralazine HCl 10 mg 04/15/22 08:07 04/15/22 11:59 Hydralazine 20 Mg/1 Ml Inj IV 10 mg Q4HR PRN Administration Hypertension Hydralazine HCl 50 mg 04/16/22 14:00 Hydralazine 25 Mg Tab PO Q8HR ABDIAZIZ Sodium Chloride 1,000 mls @ 125 mls/hr 04/14/22 18:45 04/15/22 14:18 Nacl 0.9% 1000 Ml IV 0 mls/hr DIRECT ABDIAZIZ Infusion Nicardipine HCl 50 mg/ Sodium 250 mls @ 25 mls/hr 04/14/22 20:00 04/14/22 23:03 Chloride IV 0 mg/hr TITR ABDIAZIZ 0 mls/hr Titration Protocol 5 MG/HR Sodium Chloride 500 mls @ 20 mls/hr 04/15/22 13:00 04/15/22 23:03 Nacl 3% IV 04/16/22 13:59 20 mls/hr DIRECT ONE Infusion Magnesium Sulfate 2 gm in 50 mls @ 25 mls/hr 04/16/22 09:00 Magnesium Sulfate 2gm/50ml IV 04/16/22 13:00 ONCE@0900 ABDIAZIZ Methimazole 5 mg 04/14/22 22:00 04/16/22 06:20 Methimazole 5 Mg Tab PO 04/16/22 23:59 5 mg Q8HR ABDIAZIZ Administration Oxycodone/Acetaminophen 1 tab 04/14/22 18:37 Oxycodone /Acetaminophen 5-325mg Tab PO Q16H PRN Pain, Moderate (4-6) Potassium Chloride 40 meq 04/16/22 09:00 Potassium Chloride Er 20 Meq Tab PO 04/16/22 13:00 ONCE@0900 ABDIAZIZ Sodium Chloride 10 ml 04/14/22 22:00 04/15/22 21:35 Sodium Chloride 0.9% 10 Ml Flush Syringe IV 10 ml BID ABDIAZIZ Administration Sodium Chloride 10 ml 04/14/22 18:37 Sodium Chloride 0.9% 10 Ml Flush Syringe IV PRN PRN LINE FLUSH
--- NOTE | 2022-04-16 10:00 | Electrocardiograph Report ---
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
[2022-04-16] MEDS: ENOXAPARIN 40 MG/0.4 ML INJ SUB-Q SCH (10:20)
[2022-04-16] MEDS: FAMOTIDINE 20 MG TAB PO SCH (10:22)
[2022-04-16] MEDS: carvediloL 12.5 MG TAB PO SCH ×2 (10:24→21:08)
[2022-04-16] MEDS: amLODIPine 10 MG TAB PO SCH (10:24)
--- NOTE | 2022-04-16 13:36 | Progress Note ---
Assessment and Plan Acute toxic metabolic encephalopathy Severe hyponatremia Hypertensive emergency Hypokalemia Hypothyroidism History of vascular dementia History of cerebrovascular atherosclerosis Protein calorie malnutrition Mild hypokalemia - transfer to step down unit - continue q6h BMP's to monitor for rebound hyponatremia worsening - appreciate nephrology input and will follow recommendations - bedside dysphagia screen and advance diet - prn supplemental oxygen to keep O2 sats > 90% - prn bronchodilators (TITUS) with pulm hygiene per RT - avoid nephrotoxins, renally dose all medications - continue mobility protocols to prevent pressure ulcers - PT/OT as tolerated - Wound care per RN/WCT - continue accuchecks with glycemic control per SSI for target blood glucose < 180 mg/dL - Smoking cessation strongly counseled at the bedside - home oxygen evaluation at discharge - GI & VTE prophylaxis - Flu & pneumovax per protocol - prn analgesia per pain score - continue other care per attending / other consultants ... re-evaluate in am & prn Subjective Date of service: 04/16/22 Principal diagnosis: AMS; Severe hyponatremia; HTNsive emergency; Hypothy roidism; Malnutrition Interval history: Patient is seen today for: Acute toxic metabolic encephalopathy; Severe hyponatremia; Hypertensive emergency; Hypothyroidism; H/O cerebrovascular atherosclerosis; Protein calorie malnutrition; Mild hypokalemia Seen and examined at bedside; 24hour events reviewed; nursing and respiratory care staff consulted; no adverse overnight events reported to me; resting peacefully in bed; appropriate improvement in serum sodium with 3% saline administration; no N/V/F/C; no seizures or worsening mental status Objective Vital Signs - 12hr 04/16/22 04/16/22 04/16/22 02:01 02:30 03:01 Temperature Pulse Rate 78 80 75 Pulse Rate [ From Monitor] Respiratory 19 16 17 Rate Blood Pressure 151/77 161/81 166/76 O2 Sat by Pulse 96 96 95 Oximetry 04/16/22 04/16/22 04/16/22 03:30 04:00 04:30 Temperature 98.3 F Pulse Rate 78 84 77 Pulse Rate [ 84 From Monitor] Respiratory 15 18 17 Rate Blood Pressure 164/84 167/88 174/79 O2 Sat by Pulse 97 97 95 Oximetry 04/16/22 04/16/22 04/16/22 05:01 05:31 06:01 Temperature Pulse Rate 83 78 75 Pulse Rate [ From Monitor] Respiratory 18 16 17 Rate Blood Pressure 175/84 179/91 180/81 O2 Sat by Pulse 95 96 96 Oximetry 04/16/22 04/16/22 04/16/22 06:20 06:31 07:00 Temperature Pulse Rate 75 76 79 Pulse Rate [ From Monitor] Respiratory 16 14 Rate Blood Pressure 180/81 175/82 171/84 O2 Sat by Pulse 96 97 Oximetry 04/16/22 04/16/22 04/16/22 07:13 07:30 08:00 Temperature 98.0 F 97.9 F Pulse Rate 75 89 Pulse Rate [ 89 From Monitor] Respiratory 14 19 Rate Blood Pressure 165/81 O2 Sat by Pulse 97 95 Oximetry 04/16/22 04/16/22 04/16/22 08:01 08:30 09:00 Temperature Pulse Rate 89 91 H 93 H Pulse Rate [ From Monitor] Respiratory 19 19 17 Rate Blood Pressure 167/78 172/87 172/87 O2 Sat by Pulse 95 96 98 Oximetry 04/16/22 04/16/22 04/16/22 09:30 10:00 10:24 Temperature Pulse Rate 85 86 83 Pulse Rate [ From Monitor] Respiratory 16 19 Rate Blood Pressure 172/91 168/86 168/86 O2 Sat by Pulse 97 96 Oximetry 04/16/22 04/16/22 10:31 11:37 Temperature 98.7 F Pulse Rate 88 Pulse Rate [ From Monitor] Respiratory 18 Rate Blood Pressure 186/81 O2 Sat by Pulse 96 Oximetry Constitutional: no acute distress Eyes: non-icteric, other (right eye enucleation) ENT: oropharynx moist Neck: supple, no lymphadenopathy, no JVD Effort: normal Ascultation: Bilateral: clear Percussion: Bilateral: not dull Cardiovascular: regular rate and rhythm Gastrointestinal: normoactive bowel sounds, soft, non-tender, non-distended Integumentary: normal Extremities: no cyanosis, no edema, pink and warm, pulses normal, no ischemia or petechiae Neurologic: normal mental status, non-focal exam, pupils equal and round, CN II-XII normal, motor strength normal and Psychiatric: mood appropriate, affect normal CBC and BMP: 04/16/22 05:00 04/16/22 05:00 ABG, PT/INR, D-dimer: PT/INR, D-dimer PT 13.1 Sec. (12.2-14.9) 04/14/22 16:16 INR 0.90 (0.87-1.13) 04/14/22 16:16 Abnormal lab findings: Abnormal Labs 04/14/22 04/14/22 04/14/22 15:57 16:16 16:16 WBC 3.4 L MCH MCHC 36 H Plt Count [place] % (Auto) 12.4 H Lymph # (Auto) 1.0 L Sodium 113 L* Potassium 3.2 L Chloride 75.6 L Carbon Dioxide Creatinine Glucose 153 H POC Glucose 130 H Uric Acid Calcium Ammonia Total Protein 9.2 H TSH Free T4 Urine pH 04/14/22 04/14/22 04/15/22 16:16 16:16 04:38 WBC MCH MCHC 36 H Plt Count [place] % (Auto) 13.5 H Lymph # (Auto) 1.1 L Sodium Potassium Chloride Carbon Dioxide Creatinine Glucose POC Glucose Uric Acid Calcium Ammonia 14.0 L Total Protein TSH 5.070 H Free T4 2.00 H Urine pH 04/15/22 04/15/22 04/15/22 04:38 08:03 11:32 WBC MCH MCHC Plt Count [place] % (Auto) Lymph # (Auto) Sodium 116 L* Potassium 2.8 L* Chloride 82.8 L Carbon Dioxide Creatinine 0.5 L Glucose POC Glucose 109 H Uric Acid Calcium 8.2 L Ammonia Total Protein TSH Free T4 Urine pH 8.0 H 04/15/22 04/15/22 04/15/22 12:00 16:26 16:45 WBC MCH MCHC Plt Count [place] % (Auto) Lymph # (Auto) Sodium 113 L* 115 L* Potassium 3.0 L D Chloride 82.6 L 84.4 L Carbon Dioxide 20 L Creatinine 0.4 L 0.4 L Glucose 101 H 101 H POC Glucose 111 H Uric Acid Calcium 8.2 L 8.3 L Ammonia Total Protein TSH Free T4 Urine pH 04/15/22 04/15/22 04/15/22 18:02 22:15 Unknown WBC MCH MCHC Plt Count [place] % (Auto) Lymph # (Auto) Sodium 117 L* 118 L* Potassium 2.9 L* Chloride 87.3 L 87.0 L Carbon Dioxide 17 L 18 L Creatinine 0.4 L 0.5 L Glucose 103 H POC Glucose Uric Acid 2.3 L Calcium 8.3 L 8.3 L Ammonia Total Protein TSH Free T4 Urine pH 04/16/22 04/16/22 04/16/22 02:15 05:00 05:00 WBC MCH 33 H MCHC 37 H Plt Count 135 L [place] % (Auto) Lymph # (Auto) Sodium 118 L* 120 L Potassium 3.5 L 3.3 L Chloride 87.1 L 88.7 L Carbon Dioxide 17 L 18 L Creatinine 0.5 L 0.5 L Glucose POC Glucose Uric Acid Calcium 8.3 L 8.3 L Ammonia Total Protein TSH Free T4 Urine pH 04/16/22 05:00 WBC MCH MCHC Plt Count [place] % (Auto) Lymph # (Auto) Sodium Potassium Chloride Carbon Dioxide Creatinine Glucose POC Glucose Uric Acid Calcium Ammonia Total Protein TSH Free T4 1.88 H Urine pH Allied health notes reviewed: nursing
[2022-04-16] MEDS ORDERED: hydrALAZINE 25 MG TAB PO SCH (14:00)
--- NOTE | 2022-04-16 14:46 | Progress Note ---
<[id number] - Last Filed: 04/16/22 14:47> Assessment and Plan Assessment and plan: This is a 72-year-old female with HTN, vascular dementia, cerebral atherosclerosis, and malnutrition admitted for severe hyponatremia and Hypertensive emergency s/p cardene gtt Neuro: Hypertensive encephalopathy, h/o vascular dementia, cerebral atherosclerosis -French speaking speaking -Reorientation as needed -Maintain sleep-wake cycle -As needed analgesia -CT head shows no intracerebral hemorrhage or stroke mimics, no chronic sequela from trauma, extensive periventricular low-attenuation areas due to chronic small vessel disease -CT head/neck with no significant abnormality -PT/OT consulted Cardiac: s/p hypertensive emergency, h/o hypertension -Presented with a blood pressure of 221/104 -Per family patient is compliant with medications -S/p Cardene drip -Antihypertension regimen: Coreg, amlodipine -PO hydral dc by nephro -PRN IV Hydral -Blood pressure monitoring per protocol Respiratory: NAD -Supplemental oxygen as needed -Pulmonary hygiene -SPO2 monitor per protocol GI: Malnutrition -Passed bedside swallow -Mechanical soft diet -24 hours +596 mL -PPI -BR: Colace : Severe hyponatremia, hypokalemia, hypochloremia, metabolic acidosis -Presented with a sodium of 113, potassium 3.2, chloride of 75.6 -CCM and Nephrology consulted, appreciate recommendations -S/p 3% saline -NS at 125 -Monitor intake and output -Renally dose medications -Avoid nephrotoxic medications -Replete with IV and p.o. potassium -Trend BMP ID: NAD -Monitor WBC and temperature curve Endo: Thyrotoxicosis -Admit TSH 5.607, free T4 2 -Methimazole -Avoid hypoglycemia -SSI -Accu-Cheks q. 6 Heme: Thrombocytopenia -Trend CBC -Transfuse hemoglobin less than 7 -SCDs to BLE while in bed The high probability of a clinically significant, sudden or life threatening deterioration of the [multiple] system(s) required my full and direct attention, intervention and personal management. The aggregate critical care time was [60] minutes. This time is in addition to time spent performing reported procedures but includes the following: [x] Data Review and interpretation [x] Patient assessment and monitoring of vital signs [x] Documentation [x] Medication orders and management Disposition Plan: transfer to floor Total Time Spent with Patient (Minutes): 60 History Interval history: This is a 72-year-old female with malnutrition, vascular dementia, cerebral atherosclerosis who presented to emergency department on 04/14 with confusion and lethargy per EMS. Per son patient experienced increased weakness over the past month resulting in multiple falls. In the emergency department blood pressure was 221/104 consistent with hypertensive emergency complicated by hypertensive encephalopathy, lab work showed severe hyponatremia with a sodium of 113, hypokalemia and thyrotoxicosis. Patient was admitted to the hospitalist service to the ICU with consults to [facility] and nephrology with hypertensive emergency, severe hyponatremia, hypokalemia, hypertensive encephalopathy syndrome and thyrotoxicosis. Hospital Course to Date: 04/15: Drowsy but AAO, stable on RA. off cardene gtt this am, VSS. Remains on NS gtt, sodium back down to 113. 3% saline initiated at 20ml/hr, serial BMP Q4hr. Nephrology is also following. Tight BP control, PRN hydralazine for SBP greater than 160. Resume home meds when list is available. K repleted, monitor and replace electrolytes as needed. [facility] is also following. 04/16: Patient was awake and alert, French speaking and son at bedside as dust mixer. Sodium 120. S/p 3% normal saline. Patient will be transferred to IMCU. Remains off Cardene drip and antihypertensive regimen titrated. Hospitalist Physical - Constitutional Vitals: Temp Pulse Resp BP Pulse Ox 98.7 F 73 16 127/66 96 04/16/22 11:37 04/16/22 14:00 04/16/22 14:00 04/16/22 14:00 04/16/22 14:00 General appearance: Present: no acute distress, cachectic - EENT Eyes: Present: PERRL, EOM intact ENT: hearing intact, clear oral mucosa, dentition normal - Neck Neck: Present: normal ROM - Respiratory Respiratory effort: normal Respiratory: bilateral: CTA - Cardiovascular Rhythm: regular Heart Sounds: Present: S1 & S2. Absent: systolic murmur, diastolic murmur - Extremities Extremities: no ischemia, pulses intact, pulses symmetrical, No edema, normal temperature, normal color Peripheral Pulses: within normal limits - Abdominal General gastrointestinal: soft, non-tender, non-distended, normal bowel sounds - Integumentary Integumentary: Present: warm (swelling to right orbit from fall sustained at home), dry - Neurologic Neurologic: CNII-XII intact, no focal deficits, moves all extremities - Allied Health Allied health notes reviewed: nursing, RT, social work HEART Score - HEART Score Troponin: Troponin T < 0.010 ng/mL (0.00-0.029) 04/14/22 16:16 Results - Labs CBC & Chem 7: 04/16/22 05:00 04/16/22 05:00 Labs: Laboratory Last Values WBC 4.6 K/mm3 (4.5-11.0) 04/16/22 05:00 RBC 3.75 M/mm3 (3.65-5.03) 04/16/22 05:00 Hgb 12.3 gm/dl (10.1-14.3) 04/16/22 05:00 Hct 33.7 % (30.3-42.9) 04/16/22 05:00 MCV 90 fl (79-97) 04/16/22 05:00 MCH 33 pg (28-32) H 04/16/22 05:00 MCHC 37 % (30-34) H 04/16/22 05:00 RDW 13.8 % (13.2-15.2) 04/16/22 05:00 Plt Count 135 K/mm3 (140-440) L 04/16/22 05:00 Lymph % (Auto) 23.6 % (13.4-35.0) 04/15/22 04:38 [place] % (Auto) 13.5 % (0.0-7.3) H 04/15/22 04:38 Eos % (Auto) 0.7 % (0.0-4.3) 04/15/22 04:38 Baso % (Auto) 0.4 % (0.0-1.8) 04/15/22 04:38 Lymph # (Auto) 1.1 K/mm3 (1.2-5.4) L 04/15/22 04:38 [place] # (Auto) 0.6 K/mm3 (0.0-0.8) 04/15/22 04:38 Eos # (Auto) 0.0 K/mm3 (0.0-0.4) 04/15/22 04:38 Baso # (Auto) 0.0 K/mm3 (0.0-0.1) 04/15/22 04:38 Seg Neutrophils % 61.8 % (40.0-70.0) 04/15/22 04:38 Seg Neutrophils # 2.8 K/mm3 (1.8-7.7) 04/15/22 04:38 PT 13.1 Sec. (12.2-14.9) 04/14/22 16:16 INR 0.90 (0.87-1.13) 04/14/22 16:16 APTT 35.5 Sec. (24.2-36.6) 04/14/22 16:16 Sodium 120 mmol/L (137-145) L 04/16/22 05:00 Potassium 3.3 mmol/L (3.6-5.0) L 04/16/22 05:00 Chloride 88.7 mmol/L (98-107) L 04/16/22 05:00 Carbon Dioxide 18 mmol/L (22-30) L 04/16/22 05:00 Anion Gap 17 mmol/L 04/16/22 05:00 BUN 15 mg/dL (7-17) 04/16/22 05:00 Creatinine 0.5 mg/dL (0.6-1.2) L 04/16/22 05:00 Estimated GFR > 60 ml/min 04/16/22 05:00 BUN/Creatinine Ratio 30 % 04/16/22 05:00 Glucose 88 mg/dL (65-100) 04/16/22 05:00 POC Glucose 99 mg/dL (70-105) 04/16/22 11:14 Osmolality 291 Mosm/kg 04/15/22 Unknown Uric Acid 2.3 mg/dL (3.5-7.6) L 04/15/22 Unknown Calcium 8.3 mg/dL (8.4-10.2) L 04/16/22 05:00 Phosphorus 3.00 mg/dL (2.5-4.5) 04/16/22 05:00 Magnesium 1.70 mg/dL (1.7-2.3) 04/16/22 05:00 Total Bilirubin 0.80 mg/dL (0.1-1.2) 04/14/22 16:16 AST 28 units/L (5-40) 04/14/22 16:16 ALT 11 units/L (7-56) 04/14/22 16:16 Alkaline Phosphatase 105 units/L (35-129) 04/14/22 16:16 Ammonia 14.0 umol/L (25-60) L 04/14/22 16:16 Total Creatine Kinase 69 units/L (30-135) 04/14/22 16:16 CK-MB (CK-2) 2.2 ng/mL (0.0-4.0) 04/14/22 16:16 CK-MB (CK-2) Rel Index 3.1 (0-4) 04/14/22 16:16 Troponin T < 0.010 ng/mL (0.00-0.029) 04/14/22 16:16 Total Protein 9.2 g/dL (6.3-8.2) H 04/14/22 16:16 Albumin 4.0 g/dL (3.9-5) 04/14/22 16:16 Albumin/Globulin Ratio 0.8 % 04/14/22 16:16 TSH 5.070 mlU/mL (0.270-4.200) H 04/14/22 16:16 Free T4 1.88 ng/dL (0.76-1.46) H 04/16/22 05:00 Urine Color Straw (Yellow) 04/15/22 08:03 Urine Turbidity Clear (Clear) 04/15/22 08:03 Urine pH 8.0 (5.0-7.0) H 04/15/22 08:03 Ur Specific [place] 1.017 (1.003-1.030) 04/15/22 08:03 Urine Protein 30 mg/dl mg/dL (Negative) 04/15/22 08:03 Urine Glucose (UA) Neg mg/dL (Negative) 04/15/22 08:03 Urine Ketones Neg mg/dL (Negative) 04/15/22 08:03 Urine Blood Neg (Negative) 04/15/22 08:03 Urine Nitrite Neg (Negative) 04/15/22 08:03 Urine Bilirubin Neg (Negative) 04/15/22 08:03 Urine Urobilinogen < 2.0 mg/dL (<2.0) 04/15/22 08:03 Ur Leukocyte Esterase Neg (Negative) 04/15/22 08:03 Urine WBC (Auto) < 1.0 /HPF (0.0-6.0) 04/15/22 08:03 Urine RBC (Auto) 1.0 /HPF (0.0-6.0) 04/15/22 08:03 U Epithel Cells (Auto) < 1.0 /HPF (0-13.0) 04/15/22 08:03 Urine Osmolality 448 Mosm/kg 04/15/22 13:42 Microbiology: Microbiology 04/14/22 16:16 Peripheral/Venous Blood Culture - Preliminary NO GROWTH AFTER 24 HOURS 04/14/22 16:16 Peripheral/Venous Blood Culture - Preliminary NO GROWTH AFTER 24 HOURS Rey/IV: Voiding Method External Female Catheter Active Medications - Current Medications Current Medications: Generic Name Dose Route Start Last Admin Trade Name Freq PRN Reason Stop Dose Admin Amlodipine Besylate 10 mg 04/16/22 11:00 04/16/22 10:24 Amlodipine 10 Mg Tab PO 10 mg QDAY ABDIAZIZ Administration Carvedilol 12.5 mg 04/16/22 11:00 04/16/22 10:24 Carvedilol 12.5 Mg Tab PO 12.5 mg BID ABDIAZIZ Administration Docusate Sodium 100 mg 04/16/22 22:00 Docusate Sodium 100 Mg Cap PO BID ABDIAZIZ Enoxaparin Sodium 40 mg 04/15/22 10:00 04/16/22 10:20 Enoxaparin 40 Mg/0.4 Ml Inj SUB-Q 40 mg QDAY ABDIAZIZ Administration Protocol Famotidine 20 mg 04/16/22 10:00 04/16/22 10:22 Famotidine 20 Mg Tab PO 20 mg QDAY ABDIAZIZ Administration Hydralazine HCl 10 mg 04/15/22 08:07 04/15/22 11:59 Hydralazine 20 Mg/1 Ml Inj IV 10 mg Q4HR PRN Administration Hypertension Sodium Chloride 1,000 mls @ 125 mls/hr 04/14/22 18:45 04/15/22 14:18 Nacl 0.9% 1000 Ml IV 0 mls/hr DIRECT ABDIAZIZ Infusion Nicardipine HCl 50 mg/ Sodium 250 mls @ 25 mls/hr 04/14/22 20:00 04/14/22 23:03 Chloride IV 0 mg/hr TITR ABDIAZIZ 0 mls/hr Titration Protocol 5 MG/HR Methimazole 5 mg 04/14/22 22:00 04/16/22 06:20 Methimazole 5 Mg Tab PO 04/16/22 23:59 5 mg Q8HR ABDIAZIZ Administration Oxycodone/Acetaminophen 1 tab 04/14/22 18:37 Oxycodone /Acetaminophen 5-325mg Tab PO Q16H PRN Pain, Moderate (4-6) Sodium Chloride 10 ml 04/14/22 22:00 04/16/22 10:22 Sodium Chloride 0.9% 10 Ml Flush Syringe IV 10 ml BID ABDIAZIZ Administration Sodium Chloride 10 ml 04/14/22 18:37 Sodium Chloride 0.9% 10 Ml Flush Syringe IV PRN PRN LINE FLUSH <VLADIMIR ALBA - Last Filed: 04/17/22 07:56> Assessment and Plan Assessment and plan: I saw and evaluated the patient. I agree with the findings and the plan of care as documented in the Nurse Practitioner's~note, with the following corrections and additions. Hospitalist Physical - Constitutional Vitals: Temp Pulse Resp BP Pulse Ox 98.1 F 74 17 169/74 97 04/17/22 03:42 04/17/22 03:42 04/17/22 03:42 04/17/22 03:42 04/17/22 03:42 HEART Score - HEART Score Troponin: Troponin T < 0.010 ng/mL (0.00-0.029) 04/14/22 16:16 Results - Labs CBC & Chem 7: 04/17/22 06:38 04/16/22 17:27 Labs: Laboratory Last Values WBC 3.8 K/mm3 (4.5-11.0) L 04/17/22 06:38 RBC 3.74 M/mm3 (3.65-5.03) 04/17/22 06:38 Hgb 12.2 gm/dl (10.1-14.3) 04/17/22 06:38 Hct 34.5 % (30.3-42.9) 04/17/22 06:38 MCV 92 fl (79-97) 04/17/22 06:38 MCH 33 pg (28-32) H 04/17/22 06:38 MCHC 35 % (30-34) H 04/17/22 06:38 RDW 13.8 % (13.2-15.2) 04/17/22 06:38 Plt Count 112 K/mm3 (140-440) L 04/17/22 06:38 Lymph % (Auto) 23.2 % (13.4-35.0) 04/17/22 06:38 [place] % (Auto) 13.5 % (0.0-7.3) H 04/17/22 06:38 Eos % (Auto) 0.4 % (0.0-4.3) 04/17/22 06:38 Baso % (Auto) 0.4 % (0.0-1.8) 04/17/22 06:38 Lymph # (Auto) 0.9 K/mm3 (1.2-5.4) L 04/17/22 06:38 [place] # (Auto) 0.5 K/mm3 (0.0-0.8) 04/17/22 06:38 Eos # (Auto) 0.0 K/mm3 (0.0-0.4) 04/17/22 06:38 Baso # (Auto) 0.0 K/mm3 (0.0-0.1) 04/17/22 06:38 Seg Neutrophils % 62.5 % (40.0-70.0) 04/17/22 06:38 Seg Neutrophils # 2.3 K/mm3 (1.8-7.7) 04/17/22 06:38 PT 13.1 Sec. (12.2-14.9) 04/14/22 16:16 INR 0.90 (0.87-1.13) 04/14/22 16:16 APTT 35.5 Sec. (24.2-36.6) 04/14/22 16:16 Sodium 117 mmol/L (137-145) L* 04/16/22 17:27 Potassium 3.2 mmol/L (3.6-5.0) L 04/16/22 17:27 Chloride 85.8 mmol/L (98-107) L 04/16/22 17:27 Carbon Dioxide 16 mmol/L (22-30) L 04/16/22 17:27 Anion Gap 18 mmol/L 04/16/22 17:27 BUN 16 mg/dL (7-17) 04/16/22 17:27 Creatinine 0.7 mg/dL (0.6-1.2) 04/16/22 17:27 Estimated GFR > 60 ml/min 04/16/22 17:27 BUN/Creatinine Ratio 23 % 04/16/22 17:27 Glucose 186 mg/dL (65-100) H 04/16/22 17:27 POC Glucose 104 mg/dL (70-105) 04/17/22 06:17 Osmolality 291 Mosm/kg 04/15/22 Unknown Uric Acid 2.3 mg/dL (3.5-7.6) L 04/15/22 Unknown Calcium 8.3 mg/dL (8.4-10.2) L 04/16/22 17:27 Phosphorus 3.00 mg/dL (2.5-4.5) 04/16/22 05:00 Magnesium 2.40 mg/dL (1.7-2.3) H 04/16/22 20:49 Total Bilirubin 0.80 mg/dL (0.1-1.2) 04/14/22 16:16 AST 28 units/L (5-40) 04/14/22 16:16 ALT 11 units/L (7-56) 04/14/22 16:16 Alkaline Phosphatase 105 units/L (35-129) 04/14/22 16:16 Ammonia 14.0 umol/L (25-60) L 04/14/22 16:16 Total Creatine Kinase 69 units/L (30-135) 04/14/22 16:16 CK-MB (CK-2) 2.2 ng/mL (0.0-4.0) 04/14/22 16:16 CK-MB (CK-2) Rel Index 3.1 (0-4) 04/14/22 16:16 Troponin T < 0.010 ng/mL (0.00-0.029) 04/14/22 16:16 Total Protein 9.2 g/dL (6.3-8.2) H 04/14/22 16:16 Albumin 4.0 g/dL (3.9-5) 04/14/22 16:16 Albumin/Globulin Ratio 0.8 % 04/14/22 16:16 TSH 2.100 mlU/mL (0.270-4.200) 04/17/22 06:38 Free T4 1.88 ng/dL (0.76-1.46) H 04/16/22 05:00 Urine Color Straw (Yellow) 04/15/22 08:03 Urine Turbidity Clear (Clear) 04/15/22 08:03 Urine pH 8.0 (5.0-7.0) H 04/15/22 08:03 Ur Specific [place] 1.017 (1.003-1.030) 04/15/22 08:03 Urine Protein 30 mg/dl mg/dL (Negative) 04/15/22 08:03 Urine Glucose (UA) Neg mg/dL (Negative) 04/15/22 08:03 Urine Ketones Neg mg/dL (Negative) 04/15/22 08:03 Urine Blood Neg (Negative) 04/15/22 08:03 Urine Nitrite Neg (Negative) 04/15/22 08:03 Urine Bilirubin Neg (Negative) 04/15/22 08:03 Urine Urobilinogen < 2.0 mg/dL (<2.0) 04/15/22 08:03 Ur Leukocyte Esterase Neg (Negative) 04/15/22 08:03 Urine WBC (Auto) < 1.0 /HPF (0.0-6.0) 04/15/22 08:03 Urine RBC (Auto) 1.0 /HPF (0.0-6.0) 04/15/22 08:03 U Epithel Cells (Auto) < 1.0 /HPF (0-13.0) 04/15/22 08:03 Urine Osmolality 448 Mosm/kg 04/15/22 13:42 Microbiology: Microbiology 04/14/22 16:16 Peripheral/Venous Blood Culture - Preliminary NO GROWTH AFTER 48 HOURS 04/14/22 16:16 Peripheral/Venous Blood Culture - Preliminary NO GROWTH AFTER 48 HOURS 04/15/22 08:03 Urine,Clean Catch Urine Culture - Preliminary Rey/IV: Voiding Method External Female Catheter Active Medications - Current Medications Current Medications: Generic Name Dose Route Start Last Admin Trade Name Freq PRN Reason Stop Dose Admin Amlodipine Besylate 10 mg 04/16/22 11:00 04/16/22 10:24 Amlodipine 10 Mg Tab PO 10 mg QDAY ABDIAZIZ Administration Carvedilol 12.5 mg 04/16/22 11:00 04/16/22 21:08 Carvedilol 12.5 Mg Tab PO 12.5 mg BID ABDIAZIZ Administration Docusate Sodium 100 mg 04/16/22 22:00 04/16/22 21:08 Docusate Sodium 100 Mg Cap PO 100 mg BID ABDIAZIZ Administration Enoxaparin Sodium 40 mg 04/15/22 10:00 04/16/22 10:20 Enoxaparin 40 Mg/0.4 Ml Inj SUB-Q 40 mg QDAY ABDIAZIZ Administration Protocol Famotidine 20 mg 04/16/22 10:00 04/16/22 10:22 Famotidine 20 Mg Tab PO 20 mg QDAY ABDIAZIZ Administration Hydralazine HCl 10 mg 04/15/22 08:07 04/15/22 11:59 Hydralazine 20 Mg/1 Ml Inj IV 10 mg Q4HR PRN Administration Hypertension Sodium Chloride 1,000 mls @ 125 mls/hr 04/14/22 18:45 04/17/22 03:20 Nacl 0.9% 1000 Ml IV 125 mls/hr DIRECT ABDIAZIZ Administration Oxycodone/Acetaminophen 1 tab 04/14/22 18:37 Oxycodone /Acetaminophen 5-325mg Tab PO Q16H PRN Pain, Moderate (4-6) Potassium Chloride 40 meq 04/16/22 19:00 Potassium Chloride Er 20 Meq Tab PO 04/17/22 19:01 ONCE ABDIAZIZ Sodium Chloride 10 ml 04/14/22 22:00 04/16/22 21:08 Sodium Chloride 0.9% 10 Ml Flush Syringe IV 10 ml BID ABDIAZIZ Administration Sodium Chloride 10 ml 04/14/22 18:37 Sodium Chloride 0.9% 10 Ml Flush Syringe IV PRN PRN LINE FLUSH Nutrition/Malnutrition Assess - Dietary Evaluation Nutrition/Malnutrition Findings: Nutrition Notes Start: 04/16/22 16:39 Freq: Status: Active Protocol: Document 04/16/22 16:39 DULCE (Rec: 04/16/22 17:03 DULCE [id number]) Nutrition Notes Need for Assessment generated from: MD Order Initial or Follow up Assessment Current Diagnosis Hypertension,Malnutrition Other Pertinent Diagnosis Metabolic Encephalopathy, Thrombocytopenia, Thyrotoxicosis, Elec. Imbalance Current Diet Cardiac -Mechanical Soft- Diet (from D 04/16). Labs/Tests Na 120, K 3.3, Cl 88.7, CO2 17 , Crea 0.5, Ca 8.3. Pertinent Medications 04/16: Nutritionally unremarkable. 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 Weight Status Appropriate Subjective/Other Information RD consult for malnutrition assessment. No reports available on Pt's PO intake of meals at the time , will assess at F/U. Pt is on Room Air, O2 saturation @ 95%, according to Physical Assessment History notes. Pt has missing teeth, according to Physical Assessment History notes. Provedure on 04/14: R-FV triple-lumen Catheter placement, well tolerated, according to Operative Report notes. Pt presents facial bruises por as signs of concern for skin risk at the time, according to Physical Assessment History notes. Pt shows no signs of concern for risk of malnutrition at the time, according to Physical Assessment History notes. Percent of energy/protein needs met: Prescribed Cardiac -Mechanical Soft- Diet provides for energy/protein needs (2,230 Kcal/85 g) during LOS. Burn Absent Trauma Absent GI Symptoms None Food Allergy No Skin Integrity/Comment Facial bruises. 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 No Is Patient Ambulatory and/or Out of Bed No REE-(Van Lear-St. Jeor-confined to bed) [id number] Calculation Used for Recommendations Van Lear-St Jeor Additional Notes Protein: 1-1.2 g/Kg ABW; 51-61 g/day. Fluids: 1 ml/Kcal, or as per MD. Nutrition Intervention Change Diet Order: Continue Cardiac -Mechanical Soft- Diet. Follow-Up By: 04/23/22 Additional Comments Continue monitoring food tolerance, %PO intake of meals , and BM.
[2022-04-16 18:06] LABS: Blood Urea Nitrogen 16 mg/dL (7-17); Calcium 8.3 mg/dL (8.4-10.2); Hemolysis Index 4
[2022-04-16 18:22] LABS: BUN/Creatinine Ratio 23
[2022-04-16] MEDS: SODIUM CHLORIDE 0.9% 1000 ML 1,000 ML IV SCH (19:19)
[2022-04-16] MEDS: DOCUSATE SODIUM 100 MG CAP PO SCH (21:08)
[2022-04-17] MEDS: SODIUM CHLORIDE 0.9% 1000 ML 1,000 ML IV SCH ×3 (03:20→17:22)
[2022-04-17 06:58] LABS: Basophils % (Auto) 0.4 % (0.0-1.8); Eosinophils % (Auto) 0.4 % (0.0-4.3); Hematocrit 34.5 % (30.3-42.9); Hemoglobin 12.2 gm/dl (10.1-14.3); Lymphocytes # (Auto) 0.9 K/mm3 (1.2-5.4); Lymphocytes % (Auto) 23.2 % (13.4-35.0); Mean Corpuscular HGB Conc 35 % (30-34); Mean Corpuscular Volume 92 fl (79-97); Monocytes # (Auto) 0.5 K/mm3 (0.0-0.8); Monocytes % (Auto) 13.5 % (0.0-7.3); Platelet Count 112 K/mm3 (140-440); Red Blood Count 3.74 M/mm3 (3.65-5.03); Red Cell Distribution Width 13.8 % (13.2-15.2)
[2022-04-17 07:56] LABS: Blood Urea Nitrogen 13 mg/dL (7-17); Calcium 8.1 mg/dL (8.4-10.2); Hemolysis Index 41
[2022-04-17 08:05] LABS: BUN/Creatinine Ratio 26
--- NOTE | 2022-04-17 08:53 | Progress Note ---
Assessment and Plan Assessment and plan: Interval history: This is a 72-year-old female with malnutrition, vascular dementia, cerebral atherosclerosis who presented to emergency department on 04/14 with confusion and lethargy per EMS. Per son patient experienced increased weakness over the past month resulting in multiple falls. In the emergency department blood pressure was 221/104 consistent with hypertensive emergency complicated by hypertensive encephalopathy, lab work showed severe hyponatremia with a sodium of 113, hypokalemia and thyrotoxicosis. Patient was admitted to the hospitalist service to the ICU with consults to [facility] and nephrology with hypertensive emergency, severe hyponatremia, hypokalemia, hypertensive encephalopathy syndrome and thyrotoxicosis. Hospital Course to Date: 04/15: Drowsy but AAO, stable on RA. off cardene gtt this am, VSS. Remains on NS gtt, sodium back down to 113. 3% saline initiated at 20ml/hr, serial BMP Q4hr. Nephrology is also following. Tight BP control, PRN hydralazine for SBP greater than 160. Resume home meds when list is available. K repleted, monitor and repl brenda electrolytes as needed. [facility] is also following. 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 Sodium 120. S/p 3% normal saline. Patient will be transferred to [facility]. Remains off Cardene drip and antihypertensive regimen titrated. 04/17: No acute complaints. Daughter states patient mentation at baseline. K=2.7, KCL 40 MEQ IV + 40 MEQ PO ordered. repeat K this evening. Sodium improved 117- >121. Continue NS infusion, if patient continues improvement, may consider d/c tomorrow or . PT/OT eval pending. Family states they would like patient to return home so will discuss home health care with CM if patient qualifies. Assessment and plan: This is a 72-year-old female with HTN, vascular dementia, cerebral atherosc lerosis, and malnutrition admitted for severe hyponatremia and Hypertensive emergency s/p cardene gtt Neuro: Hypertensive encephalopathy, h/o vascular dementia, cerebral atherosclerosis -Malian speaking speaking -Reorientation as needed -Maintain sleep-wake cycle -As needed analgesia -CT head shows no intracerebral hemorrhage or stroke mimics, no chronic sequela from trauma, extensive periventricular low-attenuation areas due to chronic small vessel disease -CT head/neck with no significant abnormality -PT/OT consulted Cardiac: s/p hypertensive emergency, h/o hypertension -Presented with a blood pressure of 221/104 -Per family patient is compliant with medications -S/p Cardene drip -Antihypertension regimen: Coreg, amlodipine -PO hydral dc by nephro -PRN IV Hydral -Blood pressure monitoring per protocol Respiratory: NAD -Supplemental oxygen as needed -Pulmonary hygiene -SPO2 monitor per protocol GI: Malnutrition -Passed bedside swallow -Mechanical soft diet -24 hours +596 mL -PPI -BR: Colace : Severe hyponatremia, hypokalemia, hypochloremia, metabolic acidosis -Presented with a sodium of 113, potassium 3.2, chloride of 75.6 -CCM and Nephrology consulted, appreciate recommendations -S/p 3% saline -NS at 125 -Monitor intake and output -Renally dose medications -Avoid nephrotoxic medications -Replete with IV and p.o. potassium -Trend BMP ID: NAD -Monitor WBC and temperature curve Endo: Thyrotoxicosis -Admit TSH 5.607, free T4 2 -Methimazole -Avoid hypoglycemia -SSI -Accu-Cheks q. 6 Heme: Thrombocytopenia -Trend CBC -Transfuse hemoglobin less than 7 -SCDs to BLE while in bed #Advance care planning Disease education conducted, care plan discussed, diagnoses discussed, prognosis discussed, patient is full code, patient acknowledges understanding and agree with care plan, +30 minutes. Disposition Plan: tele Total Time Spent with Patient (Minutes): 35 History Interval history: Patient seen and evaluated bedside. Patient in no acute distress. Per daughter who is present on bedside, patient mentation appears to be at her baseline. She states that mother had fallen 2 weeks ago. She also states that mother's appetite has been decreasing and family typically has to encourage patient to increase p.o. intake. Hospitalist Physical - Physical exam Narrative exam: General appearance: Present: no acute distress, cachectic - EENT Eyes: Present: PERRL, EOM intact ENT: hearing intact, clear oral mucosa, dentition normal - Neck Neck: Present: normal ROM - Respiratory Respiratory effort: normal Respiratory: bilateral: CTA - Cardiovascular Rhythm: regular Heart Sounds: Present: S1 & S2. Absent: systolic murmur, diastolic murmur - Extremities Extremities: no ischemia, pulses intact, pulses symmetrical, No edema, normal temperature, normal color Peripheral Pulses: within normal limits - Abdominal General gastrointestinal: soft, non-tender, non-distended, normal bowel sounds - Integumentary Integumentary: Present: warm (swelling to right orbit from fall sustained at h ome), dry - Neurologic Neurologic: CNII-XII intact, no focal deficits, moves all extremities - Allied Health Allied health notes reviewed: nursing, RT, social work - Constitutional Vitals: Temp Pulse Resp BP Pulse Ox 97.5 F L 103 H 18 137/89 98 04/17/22 07:54 04/17/22 07:54 04/17/22 07:54 04/17/22 07:54 04/17/22 07:54 General appearance: Present: no acute distress, cachectic HEART Score - HEART Score Troponin: Troponin T < 0.010 ng/mL (0.00-0.029) 04/14/22 16:16 Results - Labs CBC & Chem 7: 04/17/22 06:38 04/17/22 10:06 Labs: Laboratory Last Values WBC 3.8 K/mm3 (4.5-11.0) L 04/17/22 06:38 RBC 3.74 M/mm3 (3.65-5.03) 04/17/22 06:38 Hgb 12.2 gm/dl (10.1-14.3) 04/17/22 06:38 Hct 34.5 % (30.3-42.9) 04/17/22 06:38 MCV 92 fl (79-97) 04/17/22 06:38 MCH 33 pg (28-32) H 04/17/22 06:38 MCHC 35 % (30-34) H 04/17/22 06:38 RDW 13.8 % (13.2-15.2) 04/17/22 06:38 Plt Count 112 K/mm3 (140-440) L 04/17/22 06:38 Lymph % (Auto) 23.2 % (13.4-35.0) 04/17/22 06:38 [place] % (Auto) 13.5 % (0.0-7.3) H 04/17/22 06:38 Eos % (Auto) 0.4 % (0.0-4.3) 04/17/22 06:38 Baso % (Auto) 0.4 % (0.0-1.8) 04/17/22 06:38 Lymph # (Auto) 0.9 K/mm3 (1.2-5.4) L 04/17/22 06:38 [place] # (Auto) 0.5 K/mm3 (0.0-0.8) 04/17/22 06:38 Eos # (Auto) 0.0 K/mm3 (0.0-0.4) 04/17/22 06:38 Baso # (Auto) 0.0 K/mm3 (0.0-0.1) 04/17/22 06:38 Seg Neutrophils % 62.5 % (40.0-70.0) 04/17/22 06:38 Seg Neutrophils # 2.3 K/mm3 (1.8-7.7) 04/17/22 06:38 PT 13.1 Sec. (12.2-14.9) 04/14/22 16:16 INR 0.90 (0.87-1.13) 04/14/22 16:16 APTT 35.5 Sec. (24.2-36.6) 04/14/22 16:16 Sodium 117 mmol/L (137-145) L* 04/16/22 17:27 Potassium 3.2 mmol/L (3.6-5.0) L 04/16/22 17:27 Chloride 85.8 mmol/L (98-107) L 04/16/22 17:27 Carbon Dioxide 18 mmol/L (22-30) L 04/17/22 06:38 Anion Gap 18 mmol/L 04/16/22 17:27 BUN 13 mg/dL (7-17) 04/17/22 06:38 Creatinine 0.5 mg/dL (0.6-1.2) L 04/17/22 06:38 Estimated GFR > 60 ml/min 04/17/22 06:38 BUN/Creatinine Ratio 26 % 04/17/22 06:38 Glucose 104 mg/dL (65-100) H 04/17/22 06:38 POC Glucose 104 mg/dL (70-105) 04/17/22 06:17 Osmolality 291 Mosm/kg 04/15/22 Unknown Uric Acid 2.3 mg/dL (3.5-7.6) L 04/15/22 Unknown Calcium 8.1 mg/dL (8.4-10.2) L 04/17/22 06:38 Phosphorus 2.60 mg/dL (2.5-4.5) 04/17/22 06:38 Magnesium 1.90 mg/dL (1.7-2.3) 04/17/22 06:38 Total Bilirubin 0.80 mg/dL (0.1-1.2) 04/14/22 16:16 AST 28 units/L (5-40) 04/14/22 16:16 ALT 11 units/L (7-56) 04/14/22 16:16 Alkaline Phosphatase 105 units/L (35-129) 04/14/22 16:16 Ammonia 14.0 umol/L (25-60) L 04/14/22 16:16 Total Creatine Kinase 69 units/L (30-135) 04/14/22 16:16 CK-MB (CK-2) 2.2 ng/mL (0.0-4.0) 04/14/22 16:16 CK-MB (CK-2) Rel Index 3.1 (0-4) 04/14/22 16:16 Troponin T < 0.010 ng/mL (0.00-0.029) 04/14/22 16:16 Total Protein 9.2 g/dL (6.3-8.2) H 04/14/22 16:16 Albumin 4.0 g/dL (3.9-5) 04/14/22 16:16 Albumin/Globulin Ratio 0.8 % 04/14/22 16:16 TSH 2.100 mlU/mL (0.270-4.200) 04/17/22 06:38 Free T4 1.88 ng/dL (0.76-1.46) H 04/16/22 05:00 Urine Color Straw (Yellow) 04/15/22 08:03 Urine Turbidity Clear (Clear) 04/15/22 08:03 Urine pH 8.0 (5.0-7.0) H 04/15/22 08:03 Ur Specific [place] 1.017 (1.003-1.030) 04/15/22 08:03 Urine Protein 30 mg/dl mg/dL (Negative) 04/15/22 08:03 Urine Glucose (UA) Neg mg/dL (Negative) 04/15/22 08:03 Urine Ketones Neg mg/dL (Negative) 04/15/22 08:03 Urine Blood Neg (Negative) 04/15/22 08:03 Urine Nitrite Neg (Negative) 04/15/22 08:03 Urine Bilirubin Neg (Negative) 04/15/22 08:03 Urine Urobilinogen < 2.0 mg/dL (<2.0) 04/15/22 08:03 Ur Leukocyte Esterase Neg (Negative) 04/15/22 08:03 Urine WBC (Auto) < 1.0 /HPF (0.0-6.0) 04/15/22 08:03 Urine RBC (Auto) 1.0 /HPF (0.0-6.0) 04/15/22 08:03 U Epithel Cells (Auto) < 1.0 /HPF (0-13.0) 04/15/22 08:03 Urine Osmolality 448 Mosm/kg 04/15/22 13:42 Microbiology: Microbiology 04/14/22 16:16 Peripheral/Venous Blood Culture - Preliminary NO GROWTH AFTER 48 HOURS 04/14/22 16:16 Peripheral/Venous Blood Culture - Preliminary NO GROWTH AFTER 48 HOURS 04/15/22 08:03 Urine,Clean Catch Urine Culture - Preliminary Rey/IV: Voiding Method External Female Catheter Active Medications - Current Medications Current Medications: Generic Name Dose Route Start Last Admin Trade Name Ucheq PRN Reason Stop Dose Admin Amlodipine Besylate 10 mg 04/16/22 11:00 04/16/22 10:24 Amlodipine 10 Mg Tab PO 10 mg QDAY ABDIAZIZ Administration Carvedilol 12.5 mg 04/16/22 11:00 04/16/22 21:08 Carvedilol 12.5 Mg Tab PO 12.5 mg BID ABDIAZIZ Administration Docusate Sodium 100 mg 04/16/22 22:00 04/16/22 21:08 Docusate Sodium 100 Mg Cap PO 100 mg BID ABDIAZIZ Administration Enoxaparin Sodium 40 mg 04/15/22 10:00 04/16/22 10:20 Enoxaparin 40 Mg/0.4 Ml Inj SUB-Q 40 mg QDAY ABDIAZIZ Administration Protocol Famotidine 20 mg 04/16/22 10:00 04/16/22 10:22 Famotidine 20 Mg Tab PO 20 mg QDAY ABDIAZIZ Administration Hydralazine HCl 10 mg 04/15/22 08:07 04/15/22 11:59 Hydralazine 20 Mg/1 Ml Inj IV 10 mg Q4HR PRN Administration Hypertension Sodium Chloride 1,000 mls @ 125 mls/hr 04/14/22 18:45 04/17/22 03:20 Nacl 0.9% 1000 Ml IV 125 mls/hr DIRECT ABDIAZIZ Administration Oxycodone/Acetaminophen 1 tab 04/14/22 18:37 Oxycodone /Acetaminophen 5-325mg Tab PO Q16H PRN Pain, Moderate (4-6) Potassium Chloride 40 meq 04/16/22 19:00 Potassium Chloride Er 20 Meq Tab PO 04/17/22 19:01 ONCE ABDIZAIZ Sodium Chloride 10 ml 04/14/22 22:00 04/16/22 21:08 Sodium Chloride 0.9% 10 Ml Flush Syringe IV 10 ml BID ABDIAZIZ Administration Sodium Chloride 10 ml 04/14/22 18:37 Sodium Chloride 0.9% 10 Ml Flush Syringe IV PRN PRN LINE FLUSH Nutrition/Malnutrition Assess - Dietary Evaluation Nutrition/Malnutrition Findings: Nutrition Notes Start: 04/16/22 16:39 Freq: Status: Active Protocol: Document 04/16/22 16:39 DULCE (Rec: 04/16/22 17:03 DULCE [id number]) Nutrition Notes Need for Assessment generated from: MD Order Initial or Follow up Assessment Current Diagnosis Hypertension,Malnutrition Other Pertinent Diagnosis Metabolic Encephalopathy, Thrombocytopenia, Thyrotoxicosis, Elec. Imbalance Current Diet Cardiac -Mechanical Soft- Diet (from D 04/16). Labs/Tests Na 120, K 3.3, Cl 88.7, CO2 17 , Crea 0.5, Ca 8.3. Pertinent Medications 04/16: Nutritionally unremarkable. 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 Weight Status Appropriate Subjective/Other Information RD consult for malnutrition assessment. No reports available on Pt's PO intake of meals at the time , will assess at F/U. Pt is on Room Air, O2 saturation @ 95%, according to Physical Assessment History notes. Pt has missing teeth, according to Physical Assessment History notes. Provedure on 04/14: R-FV triple-lumen Catheter placement, well tolerated, according to Operative Report notes. Pt presents facial bruises por as signs of concern for skin risk at the time, according to Physical Assessment History notes. Pt shows no signs of concern for risk of malnutrition at the time, according to Physical Assessment History notes. Percent of energy/protein needs met: Prescribed Cardiac -Mechanical Soft- Diet provides for energy/protein needs (2,230 Kcal/85 g) during LOS. Burn Absent Trauma Absent GI Symptoms None Food Allergy No Skin Integrity/Comment Facial bruises. 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 No Is Patient Ambulatory and/or Out of Bed No REE-(Bosque-St. Jeor-confined to bed) [phone] Calculation Used for Recommendations [facility] Additional Notes Protein: 1-1.2 g/Kg ABW; 51-61 g/day. Fluids: 1 ml/Kcal, or as per MD. Nutrition Intervention Change Diet Order: Continue Cardiac -Mechanical Soft- Diet. Follow-Up By: 04/23/22 Additional Comments Continue monitoring food tolerance, %PO intake of meals , and BM.
[2022-04-17] MEDS: ENOXAPARIN 40 MG/0.4 ML INJ SUB-Q SCH (10:42)
[2022-04-17] MEDS: carvediloL 12.5 MG TAB PO SCH ×2 (10:43→23:21)
[2022-04-17] MEDS: amLODIPine 10 MG TAB PO SCH (10:43)
[2022-04-17] MEDS: FAMOTIDINE 20 MG TAB PO SCH (10:43)
[2022-04-17] MEDS: DOCUSATE SODIUM 100 MG CAP PO SCH ×2 (10:43→23:22)
--- NOTE | 2022-04-17 11:12 | Progress Note ---
Assessment and Plan Acute toxic metabolic encephalopathy Severe hyponatremia Hypertensive emergency Hypokalemia Hypothyroidism History of vascular dementia History of cerebrovascular atherosclerosis Protein calorie malnutrition Mild hypokalemia - transfer to step down unit - continue q6h BMP's to monitor for rebound hyponatremia worsening - appreciate nephrology input and will follow recommendations - bedside dysphagia screen and advance diet - prn supplemental oxygen to keep O2 sats > 90% - prn bronchodilators (TITUS) with pulm hygiene per RT - avoid nephrotoxins, renally dose all medications - continue mobility protocols to prevent pressure ulcers - PT/OT as tolerated - Wound care per RN/WCT - continue accuchecks with glycemic control per SSI for target blood glucose < 180 mg/dL - Smoking cessation strongly counseled at the bedside - home oxygen evaluation at discharge - GI & VTE prophylaxis - Flu & pneumovax per protocol - prn analgesia per pain score - continue other care per attending / other consultants ... re-evaluate in am & prn Subjective Date of service: 04/17/22 Principal diagnosis: AMS; Severe hyponatremia; HTNsive emergency; Hypoth yroidism; Malnutrition Interval history: Patient is seen today for: Acute toxic metabolic encephalopathy; Severe hyponatremia; Hypertensive emergency; Hypothyroidism; H/O cerebrovascular atherosclerosis; Protein calorie malnutrition; Mild hypokalemia Seen and examined at bedside; 24hour events reviewed; nursing and respiratory care staff consulted; no adverse overnight events reported to me; resting peacefully in bed; serum Na 121 today; Objective Vital Signs - 12hr 04/16/22 04/17/22 04/17/22 23:23 03:42 07:54 Temperature 97.7 F 98.1 F 97.5 F L Pulse Rate 84 74 103 H Respiratory 18 17 18 Rate Blood Pressure 159/81 169/74 137/89 O2 Sat by Pulse 99 97 98 Oximetry Constitutional: no acute distress Eyes: non-icteric, other (right eye enucleation) ENT: oropharynx moist Neck: supple, no lymphadenopathy, no JVD Effort: normal Ascultation: Bilateral: clear Percussion: Bilateral: not dull Cardiovascular: regular rate and rhythm Gastrointestinal: normoactive bowel sounds, soft, non-tender, non-distended Integumentary: normal Extremities: no cyanosis, no edema, pink and warm, pulses normal, no ischemia or petechiae Neurologic: normal mental status, non-focal exam, pupils equal and round, CN II- XII normal, motor strength normal and Psychiatric: mood appropriate, affect normal CBC and BMP: 04/17/22 06:38 04/17/22 06:38 ABG, PT/INR, D-dimer: PT/INR, D-dimer PT 13.1 Sec. (12.2-14.9) 04/14/22 16:16 INR 0.90 (0.87-1.13) 04/14/22 16:16 Abnormal lab findings: Abnormal Labs 04/14/22 04/14/22 04/14/22 15:57 16:16 16:16 WBC 3.4 L MCH MCHC 36 H Plt Count [place] % (Auto) 12.4 H Lymph # (Auto) 1.0 L Sodium 113 L* Potassium 3.2 L Chloride 75.6 L Carbon Dioxide Creatinine Glucose 153 H POC Glucose 130 H Uric Acid Calcium Magnesium Ammonia Total Protein 9.2 H TSH Free T4 Urine pH 04/14/22 04/14/22 04/15/22 16:16 16:16 04:38 WBC MCH MCHC 36 H Plt Count [place] % (Auto) 13.5 H Lymph # (Auto) 1.1 L Sodium Potassium Chloride Carbon Dioxide Creatinine Glucose POC Glucose Uric Acid Calcium Magnesium Ammonia 14.0 L Total Protein TSH 5.070 H Free T4 2.00 H Urine pH 04/15/22 04/15/22 04/15/22 04:38 08:03 11:32 WBC MCH MCHC Plt Count [place] % (Auto) Lymph # (Auto) Sodium 116 L* Potassium 2.8 L* Chloride 82.8 L Carbon Dioxide Creatinine 0.5 L Glucose POC Glucose 109 H Uric Acid Calcium 8.2 L Magnesium Ammonia Total Protein TSH Free T4 Urine pH 8.0 H 04/15/22 04/15/22 04/15/22 12:00 16:26 16:45 WBC MCH MCHC Plt Count [place] % (Auto) Lymph # (Auto) Sodium 113 L* 115 L* Potassium 3.0 L D Chloride 82.6 L 84.4 L Carbon Dioxide 20 L Creatinine 0.4 L 0.4 L Glucose 101 H 101 H POC Glucose 111 H Uric Acid Calcium 8.2 L 8.3 L Magnesium Ammonia Total Protein TSH Free T4 Urine pH 04/15/22 04/15/22 04/15/22 18:02 22:15 Unknown WBC MCH MCHC Plt Count [place] % (Auto) Lymph # (Auto) Sodium 117 L* 118 L* Potassium 2.9 L* Chloride 87.3 L 87.0 L Carbon Dioxide 17 L 18 L Creatinine 0.4 L 0.5 L Glucose 103 H POC Glucose Uric Acid 2.3 L Calcium 8.3 L 8.3 L Magnesium Ammonia Total Protein TSH Free T4 Urine pH 04/16/22 04/16/22 04/16/22 02:15 05:00 05:00 WBC MCH 33 H MCHC 37 H Plt Count 135 L [place] % (Auto) Lymph # (Auto) Sodium 118 L* 120 L Potassium 3.5 L 3.3 L Chloride 87.1 L 88.7 L Carbon Dioxide 17 L 18 L Creatinine 0.5 L 0.5 L Glucose POC Glucose Uric Acid Calcium 8.3 L 8.3 L Magnesium Ammonia Total Protein TSH Free T4 Urine pH 04/16/22 04/16/22 04/16/22 05:00 17:27 20:49 WBC MCH MCHC Plt Count [place] % (Auto) Lymph # (Auto) Sodium 117 L* Potassium 3.2 L Chloride 85.8 L Carbon Dioxide 16 L Creatinine Glucose 186 H POC Glucose Uric Acid Calcium 8.3 L Magnesium 2.40 H Ammonia Total Protein TSH Free T4 1.88 H Urine pH 04/17/22 04/17/22 06:38 06:38 WBC 3.8 L MCH 33 H MCHC 35 H Plt Count 112 L [place] % (Auto) 13.5 H Lymph # (Auto) 0.9 L Sodium 121 L Potassium 3.1 L Chloride 92.1 L Carbon Dioxide 18 L Creatinine 0.5 L Glucose 104 H POC Glucose Uric Acid Calcium 8.1 L Magnesium Ammonia Total Protein TSH Free T4 Urine pH Allied health notes reviewed: nursing
[2022-04-17 11:53] LABS: Blood Urea Nitrogen 13 mg/dL (7-17); Calcium 7.8 mg/dL (8.4-10.2); Hemolysis Index 17
[2022-04-17 12:00] LABS: BUN/Creatinine Ratio 22
[2022-04-17] MEDS: POTASSIUM CHLORIDE 10 MEQ 10 MEQ/100 ML BAG IV SCH ×4 (13:20→18:39)
[2022-04-17] MEDS: POTASSIUM CHLORIDE ER 20 MEQ TAB PO SCH (13:21)
--- NOTE | 2022-04-17 17:21 | Progress Note ---
Assessment and Plan Adult Failure To Thrive (AFTT) - Improving clinical status. F/u on po intake Electrolyte Imbalance - Replenish K, change IVF to Bicarb drip & f/u HypoNa & Metabolic Acidosis HTN - F/u on BP meds Hyperthyroidism - F/u labs on Metimazole Subjective Date of service: 04/17/22 Principal diagnosis: AMS; Severe hyponatremia; HTNsive emergency; Hypothyroidism; Malnutrition Interval history: Improving clinical status, awake & verbally responsive Objective - Vital Signs Vital signs: Vital Signs - 12hr 04/17/22 04/17/22 04/17/22 07:54 12:00 12:17 Temperature 97.5 F L 98.9 F 97.9 F Pulse Rate 103 H 49 L 45 L Respiratory 18 18 18 Rate Blood Pressure 137/89 80/38 Blood Pressure 89/41 [Right] O2 Sat by Pulse 98 98 96 Oximetry 04/17/22 04/17/22 13:21 15:53 Temperature 98.0 F 97.8 F Pulse Rate 68 75 Respiratory 18 18 Rate Blood Pressure 122/59 134/67 Blood Pressure [Right] O2 Sat by Pulse 98 98 Oximetry - General Appearance General appearance: other (Awake & alert) EENT: PERRL Neck: no JVD Respiratory: Present: Other (Good air entry) Cardiology: regular, S1S2 Gastrointestinal: normal Integumentary: warm and dry Neurologic: other (Awake & moves all limbs) - Lab 04/17/22 06:38 04/17/22 10:06 Most recent lab results Calcium 7.8 mg/dL (8.4-10.2) L 04/17/22 10:06 Phosphorus 2.60 mg/dL (2.5-4.5) 04/17/22 06:38 Magnesium 1.90 mg/dL (1.7-2.3) 04/17/22 06:38 Medications & Allergies - Medications Allergies/Adverse Reactions: Allergies No Known Allergies Allergy (Unverified 04/14/22 17:04) Active Medications: Generic Name Dose Route Start Last Admin Trade Name Freq PRN Reason Stop Dose Admin Amlodipine Besylate 10 mg 04/16/22 11:00 04/17/22 10:43 Amlodipine 10 Mg Tab PO 10 mg QDAY ABDIAZIZ Administration Carvedilol 12.5 mg 04/16/22 11:00 04/17/22 10:43 Carvedilol 12.5 Mg Tab PO 12.5 mg BID ABDIAZIZ Administration Docusate Sodium 100 mg 04/16/22 22:00 04/17/22 10:43 Docusate Sodium 100 Mg Cap PO 100 mg BID ABDIAZIZ Administration Enoxaparin Sodium 40 mg 04/15/22 10:00 04/17/22 10:42 Enoxaparin 40 Mg/0.4 Ml Inj SUB-Q 40 mg QDAY ABDIAZIZ Administration Protocol Famotidine 20 mg 04/16/22 10:00 04/17/22 10:43 Famotidine 20 Mg Tab PO 20 mg QDAY ABDIAZIZ Administration Hydralazine HCl 10 mg 04/15/22 08:07 04/15/22 11:59 Hydralazine 20 Mg/1 Ml Inj IV 10 mg Q4HR PRN Administration Hypertension Sodium Chloride 1,000 mls @ 125 mls/hr 04/14/22 18:45 04/17/22 10:38 Nacl 0.9% 1000 Ml IV 125 mls/hr DIRECT ABDIAZIZ Administration Oxycodone/Acetaminophen 1 tab 04/14/22 18:37 Oxycodone /Acetaminophen 5-325mg Tab PO Q16H PRN Pain, Moderate (4-6) Potassium Chloride 40 meq 04/16/22 19:00 04/17/22 10:43 Potassium Chloride Er 20 Meq Tab PO 04/17/22 19:01 40 meq ONCE ABDIAZIZ Administration Potassium Chloride 40 meq 04/17/22 13:00 04/17/22 13:21 Potassium Chloride Er 20 Meq Tab PO 40 meq QDAY ABDIAZIZ Administration Sodium Chloride 10 ml 04/14/22 22:00 04/17/22 10:43 Sodium Chloride 0.9% 10 Ml Flush Syringe IV 10 ml BID ABDIAZIZ Administration Sodium Chloride 10 ml 04/14/22 18:37 Sodium Chloride 0.9% 10 Ml Flush Syringe IV PRN PRN LINE FLUSH
[2022-04-18] MEDS ORDERED: LORazepam 2 MG/ML VIAL IV ONE (06:14)
[2022-04-18] MEDS ORDERED: LORazepam 0.5 MG TAB PO ONE (07:00)
--- NOTE | 2022-04-18 08:48 | Progress Note ---
Assessment and Plan Assessment and plan: Interval history: This is a 72-year-old female with malnutrition, vascular dementia, cerebral atherosclerosis who presented to emergency department on 04/14 with confusion and lethargy per EMS. Per son patient experienced increased weakness over the past month resulting in multiple falls. In the emergency department blood pressure was 221/104 consistent with hypertensive emergency complicated by hypertensive encephalopathy, lab work showed severe hyponatremia with a sodium of 113, hypokalemia and thyrotoxicosis. Patient was admitted to the hospitalist service to the ICU with consults to [facility] and nephrology with hypertensive emergency, severe hyponatremia, hypokalemia, hypertensive encephalopathy syndrome and thyrotoxicosis. Hospital Course to Date: 04/15: Drowsy but AAO, stable on RA. off cardene gtt this am, VSS. Remains on NS gtt, sodium back down to 113. 3% saline initiated at 20ml/hr, serial BMP Q4hr. Nephrology is also following. Tight BP control, PRN hydralazine for SBP greater than 160. Resume home meds when list is available. K repleted, monitor and repl brenda electrolytes as needed. [facility] is also following. 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 Sodium 120. S/p 3% normal saline. Patient will be transferred to [facility]. Remains off Cardene drip and antihypertensive regimen titrated. 04/17: No acute complaints. Daughter states patient mentation at baseline. K=2.7, KCL 40 MEQ IV + 40 MEQ PO ordered. repeat K this evening. Sodium improved 117- >121. Continue NS infusion, if patient continues improvement, may consider d/c tomorrow or . PT/OT eval pending. Family states they would like patient to return home so will discuss home health care with CM if patient qualifies. 04/18: Metabolic markers improved, k= 4.1 overnight and now 3.3. Will order scheduled KCL. sodium improved to 125. Aggitated overnight, suspect language barrier and ativan made aggitation worse. Initiated on seroquel qhs. Added haldol prn aggitation. D/w family who was at bedside today's plan and goal for potential d/c tomorrow. Assessment and plan: This is a 72-year-old female with HTN, vascular dementia, cerebral atherosclerosis, and malnutrition admitted for severe hyponatremia and Hypert ensive emergency s/p cardene gtt Neuro: Hypertensive encephalopathy, h/o vascular dementia, cerebral atherosclerosis -Citizen Of [place] speaking speaking -Reorientation as needed -Maintain sleep-wake cycle -As needed analgesia -CT head shows no intracerebral hemorrhage or stroke mimics, no chronic sequela from trauma, extensive periventricular low-attenuation areas due to chronic small vessel disease -CT head/neck with no significant abnormality -PT/OT consulted Cardiac: s/p hypertensive emergency, h/o hypertension -Presented with a blood pressure of 221/104 -Per family patient is compliant with medications -S/p Cardene drip -Antihypertension regimen: Coreg, amlodipine -PO hydral dc by nephro -PRN IV Hydral -Blood pressure monitoring per protocol Respiratory: NAD -Supplemental oxygen as needed -Pulmonary hygiene -SPO2 monitor per protocol GI: Malnutrition -Passed bedside swallow -Mechanical soft diet -24 hours +596 mL -PPI -BR: Colace : Severe hyponatremia, hypokalemia, hypochloremia, metabolic acidosis -Presented with a sodium of 113, potassium 3.2, chloride of 75.6 -CCM and Nephrology consulted, appreciate recommendations -S/p 3% saline -NS at 125 -Monitor intake and output -Renally dose medications -Avoid nephrotoxic medications -Replete with IV and p.o. potassium -Trend BMP ID: NAD -Monitor WBC and temperature curve Endo: Thyrotoxicosis -Admit TSH 5.607, free T4 2 -Methimazole -Avoid hypoglycemia -SSI -Accu-Cheks q. 6 Heme: Thrombocytopenia -Trend CBC -Transfuse hemoglobin less than 7 -SCDs to BLE while in bed #Advance care planning Disease education conducted, care plan discussed, diagnoses discussed, prognosis discussed, patient is full code, patient acknowledges understanding and agree with care plan, +30 minutes. Disposition Plan: tele Total Time Spent with Patient (Minutes): 35 History Interval history: Aggitated overnight requiring retraint and ativan. patient more calm on encounter today. Not in any distress. Family states that c onfusion was initially present but now improved on follow up . Hospitalist Physical - Physical exam Narrative exam: General appearance: Present: no acute distress, cachectic - EENT Eyes: Present: PERRL, EOM intact ENT: hearing intact, clear oral mucosa, dentition normal - Neck Neck: Present: normal ROM - Respiratory Respiratory effort: normal Respiratory: bilateral: CTA - Cardiovascular Rhythm: regular Heart Sounds: Present: S1 & S2. Absent: systolic murmur, diastolic murmur - Extremities Extremities: no ischemia, pulses intact, pulses symmetrical, No edema, normal temperature, normal color Peripheral Pulses: within normal limits - Abdominal General gastrointestinal: soft, non-tender, non-distended, normal bowel sounds - Integumentary Integumentary: Present: warm (swelling to right orbit from fall sustained at home), dry - Neurologic Neurologic: CNII-XII intact, no focal deficits, moves all extremities - Allied Health Allied health notes reviewed: nursing, RT, social work - Constitutional Vitals: Temp Pulse Resp BP Pulse Ox 98.5 F 72 18 105/54 96 04/17/22 19:35 04/17/22 19:35 04/17/22 20:00 04/17/22 19:35 04/17/22 20:00 General appearance: Present: no acute distress, cachectic HEART Score - HEART Score Troponin: Troponin T < 0.010 ng/mL (0.00-0.029) 04/14/22 16:16 Results - Labs CBC & Chem 7: 04/17/22 06:38 04/18/22 10:30 Labs: Laboratory Last Values WBC 3.8 K/mm3 (4.5-11.0) L 04/17/22 06:38 RBC 3.74 M/mm3 (3.65-5.03) 04/17/22 06:38 Hgb 12.2 gm/dl (10.1-14.3) 04/17/22 06:38 Hct 34.5 % (30.3-42.9) 04/17/22 06:38 MCV 92 fl (79-97) 04/17/22 06:38 MCH 33 pg (28-32) H 04/17/22 06:38 MCHC 35 % (30-34) H 04/17/22 06:38 RDW 13.8 % (13.2-15.2) 04/17/22 06:38 Plt Count 112 K/mm3 (140-440) L 04/17/22 06:38 Lymph % (Auto) 23.2 % (13.4-35.0) 04/17/22 06:38 [place] % (Auto) 13.5 % (0.0-7.3) H 04/17/22 06:38 Eos % (Auto) 0.4 % (0.0-4.3) 04/17/22 06:38 Baso % (Auto) 0.4 % (0.0-1.8) 04/17/22 06:38 Lymph # (Auto) 0.9 K/mm3 (1.2-5.4) L 04/17/22 06:38 [place] # (Auto) 0.5 K/mm3 (0.0-0.8) 04/17/22 06:38 Eos # (Auto) 0.0 K/mm3 (0.0-0.4) 04/17/22 06:38 Baso # (Auto) 0.0 K/mm3 (0.0-0.1) 04/17/22 06:38 Seg Neutrophils % 62.5 % (40.0-70.0) 04/17/22 06:38 Seg Neutrophils # 2.3 K/mm3 (1.8-7.7) 04/17/22 06:38 PT 13.1 Sec. (12.2-14.9) 04/14/22 16:16 INR 0.90 (0.87-1.13) 04/14/22 16:16 APTT 35.5 Sec. (24.2-36.6) 04/14/22 16:16 Sodium 121 mmol/L (137-145) L 04/17/22 10:06 Potassium 4.1 mmol/L (3.6-5.0) D 04/17/22 19:17 Chloride 92.5 mmol/L (98-107) L 04/17/22 10:06 Carbon Dioxide 17 mmol/L (22-30) L 04/17/22 10:06 Anion Gap 14 mmol/L 04/17/22 10:06 BUN 13 mg/dL (7-17) 04/17/22 10:06 Creatinine 0.6 mg/dL (0.6-1.2) 04/17/22 10:06 Estimated GFR > 60 ml/min 04/17/22 10:06 BUN/Creatinine Ratio 22 % 04/17/22 10:06 Glucose 209 mg/dL (65-100) H 04/17/22 10:06 POC Glucose 104 mg/dL (70-105) 04/17/22 20:39 Osmolality 291 Mosm/kg 04/15/22 Unknown Uric Acid 2.3 mg/dL (3.5-7.6) L 04/15/22 Unknown Calcium 7.8 mg/dL (8.4-10.2) L 04/17/22 10:06 Phosphorus 2.60 mg/dL (2.5-4.5) 04/17/22 06:38 Magnesium 1.90 mg/dL (1.7-2.3) 04/17/22 06:38 Total Bilirubin 0.80 mg/dL (0.1-1.2) 04/14/22 16:16 AST 28 units/L (5-40) 04/14/22 16:16 ALT 11 units/L (7-56) 04/14/22 16:16 Alkaline Phosphatase 105 units/L (35-129) 04/14/22 16:16 Ammonia 14.0 umol/L (25-60) L 04/14/22 16:16 Total Creatine Kinase 69 units/L (30-135) 04/14/22 16:16 CK-MB (CK-2) 2.2 ng/mL (0.0-4.0) 04/14/22 16:16 CK-MB (CK-2) Rel Index 3.1 (0-4) 04/14/22 16:16 Troponin T < 0.010 ng/mL (0.00-0.029) 04/14/22 16:16 Total Protein 9.2 g/dL (6.3-8.2) H 04/14/22 16:16 Albumin 4.0 g/dL (3.9-5) 04/14/22 16:16 Albumin/Globulin Ratio 0.8 % 04/14/22 16:16 TSH 2.100 mlU/mL (0.270-4.200) 04/17/22 06:38 Free T4 1.88 ng/dL (0.76-1.46) H 04/16/22 05:00 Urine Color Straw (Yellow) 04/15/22 08:03 Urine Turbidity Clear (Clear) 04/15/22 08:03 Urine pH 8.0 (5.0-7.0) H 04/15/22 08:03 Ur Specific [place] 1.017 (1.003-1.030) 04/15/22 08:03 Urine Protein 30 mg/dl mg/dL (Negative) 04/15/22 08:03 Urine Glucose (UA) Neg mg/dL (Negative) 04/15/22 08:03 Urine Ketones Neg mg/dL (Negative) 04/15/22 08:03 Urine Blood Neg (Negative) 04/15/22 08:03 Urine Nitrite Neg (Negative) 04/15/22 08:03 Urine Bilirubin Neg (Negative) 04/15/22 08:03 Urine Urobilinogen < 2.0 mg/dL (<2.0) 04/15/22 08:03 Ur Leukocyte Esterase Neg (Negative) 04/15/22 08:03 Urine WBC (Auto) < 1.0 /HPF (0.0-6.0) 04/15/22 08:03 Urine RBC (Auto) 1.0 /HPF (0.0-6.0) 04/15/22 08:03 U Epithel Cells (Auto) < 1.0 /HPF (0-13.0) 04/15/22 08:03 Urine Osmolality 448 Mosm/kg 04/15/22 13:42 Microbiology: Microbiology 04/14/22 16:16 Peripheral/Venous Blood Culture - Preliminary NO GROWTH AFTER 72 HOURS 04/14/22 16:16 Peripheral/Venous Blood Culture - Preliminary NO GROWTH AFTER 72 HOURS Rey/IV: Voiding Method External Female Catheter Active Medications - Current Medications Current Medications: Generic Name Dose Route Start Last Admin Trade Name Freq PRN Reason Stop Dose Admin Amlodipine Besylate 10 mg 04/16/22 11:00 04/17/22 10:43 Amlodipine 10 Mg Tab PO 10 mg QDAY ABDIAZIZ Administration Carvedilol 12.5 mg 04/16/22 11:00 04/17/22 23:21 Carvedilol 12.5 Mg Tab PO 12.5 mg BID ABDIAZIZ Administration Docusate Sodium 100 mg 04/16/22 22:00 04/17/22 23:22 Docusate Sodium 100 Mg Cap PO 100 mg BID ABDIAZIZ Administration Enoxaparin Sodium 40 mg 04/15/22 10:00 04/17/22 10:42 Enoxaparin 40 Mg/0.4 Ml Inj SUB-Q 40 mg QDAY ABDIAZIZ Administration Protocol Famotidine 20 mg 04/16/22 10:00 04/17/22 10:43 Famotidine 20 Mg Tab PO 20 mg QDAY ABDIAZIZ Administration Haloperidol Lactate 5 mg 04/18/22 08:45 Haloperidol Lactate 5 Mg/1 Ml Inj IM Q6H PRN Agitation Hydralazine HCl 10 mg 04/15/22 08:07 04/15/22 11:59 Hydralazine 20 Mg/1 Ml Inj IV 10 mg Q4HR PRN Administration Hypertension Sodium Bicarbonate 150 meq/ 1,150 mls @ 100 mls/hr 04/17/22 18:00 Sterile Water IV DIRECT ABDIAZIZ Oxycodone/Acetaminophen 1 tab 04/14/22 18:37 04/17/22 23:22 Oxycodone /Acetaminophen 5-325mg Tab PO 1 tab Q16H PRN Administration Pain, Moderate (4-6) Potassium Chloride 40 meq 04/17/22 13:00 04/17/22 13:21 Potassium Chloride Er 20 Meq Tab PO 40 meq QDAY ABDIAZIZ Administration Quetiapine Fumarate 50 mg 04/18/22 22:00 Quetiapine 25 Mg Tab PO QHS ABDIAZIZ Sodium Chloride 10 ml 04/14/22 22:00 04/17/22 23:22 Sodium Chloride 0.9% 10 Ml Flush Syringe IV 10 ml BID ABDIAZIZ Administration Sodium Chloride 10 ml 04/14/22 18:37 Sodium Chloride 0.9% 10 Ml Flush Syringe IV PRN PRN LINE FLUSH Nutrition/Malnutrition Assess - Dietary Evaluation Nutrition/Malnutrition Findings: Nutrition Notes Start: 04/16/22 16:39 Freq: Status: Active Protocol: Document 04/16/22 16:39 DULCE (Rec: 04/16/22 17:03 DULCE [id number]) Nutrition Notes Need for Assessment generated from: MD Order Initial or Follow up Assessment Current Diagnosis Hypertension,Malnutrition Other Pertinent Diagnosis Metabolic Encephalopathy, Thrombocytopenia, Thyrotoxicosis, Elec. Imbalance Current Diet Cardiac -Mechanical Soft- Diet (from D 04/16). Labs/Tests Na 120, K 3.3, Cl 88.7, CO2 17 , Crea 0.5, Ca 8.3. Pertinent Medications 04/16: Nutritionally unremarkable. 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 Weight Status Appropriate Subjective/Other Information RD consult for malnutrition assessment. No reports available on Pt's PO intake of meals at the time , will assess at F/U. Pt is on Room Air, O2 saturation @ 95%, according to Physical Assessment History notes. Pt has missing teeth, according to Physical Assessment History notes. Provedure on 04/14: R-FV triple-lumen Catheter placement, well tolerated, according to Operative Report notes. Pt presents facial bruises por as signs of concern for skin risk at the time, according to Physical Assessment History notes. Pt shows no signs of concern for risk of malnutrition at the time, according to Physical Assessment History notes. Percent of energy/protein needs met: Prescribed Cardiac -Mechanical Soft- Diet provides for energy/protein needs (2,230 Kcal/85 g) during LOS. Burn Absent Trauma Absent GI Symptoms None Food Allergy No Skin Integrity/Comment Facial bruises. 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 No Is Patient Ambulatory and/or Out of Bed No REE-(Pepin-St. Jeor-confined to bed) [phone] Calculation Used for Recommendations Pepin-St Jeor Additional Notes Protein: 1-1.2 g/Kg ABW; 51-61 g/day. Fluids: 1 ml/Kcal, or as per MD. Nutrition Intervention Change Diet Order: Continue Cardiac -Mechanical Soft- Diet. Follow-Up By: 04/23/22 Additional Comments Continue monitoring food tolerance, %PO intake of meals , and BM.
[2022-04-18] MEDS ORDERED: HALOPERIDOL LACTATE 5 MG/1 ML INJ IM PRN (10:00)
[2022-04-18] MEDS: POTASSIUM CHLORIDE ER 20 MEQ TAB PO SCH (11:04)
[2022-04-18] MEDS: carvediloL 12.5 MG TAB PO SCH ×2 (11:04→21:24)
[2022-04-18] MEDS: ENOXAPARIN 40 MG/0.4 ML INJ SUB-Q SCH (11:04)
[2022-04-18] MEDS: FAMOTIDINE 20 MG TAB PO SCH (11:04)
[2022-04-18] MEDS: DOCUSATE SODIUM 100 MG CAP PO SCH ×2 (11:04→21:23)
[2022-04-18] MEDS: amLODIPine 10 MG TAB PO SCH (11:04)
[2022-04-18] MEDS: SODIUM BICARBONATE 150 MEQ in WATER FOR INJECTION (PF) 1,000 ML IV SCH (11:05)
[2022-04-18 11:56] LABS: Blood Urea Nitrogen 10 mg/dL (7-17); Calcium 8.3 mg/dL (8.4-10.2); Hemolysis Index 0
[2022-04-18 12:05] LABS: BUN/Creatinine Ratio 17
--- NOTE | 2022-04-18 13:38 | Progress Note ---
Assessment and Plan 72 YO Female with Malnutrition, Vascular Dementia, Cerebral Atherosclerosis presents to ED for evaluation. Patient is confused and lethargic with diminished cognition . Patient history taken from EMS staff, ED staff, as well as the patient's son.As per son the patient has experienced increased weakness over the past 1 month resulting in multiple falls. Patient was found to have increased weakness today. EMS was notified and upon arrival the patient was found to be in distress and subsequent transported to [facility] for further care and evaluation of the aforementioned symptoms. The patient was evaluated in the emergency department. Patient found to have blood pressure of 221/104 mmHg which is consistent with hypertensive emergency complicated by hypertensive encephalopathy, severe hyponatremia with a serum sodium of 113, metabolic encephalopathy, hypokalemia, and thyrotoxicosis. Patient admitted to ICU due to increased risk of worsening symptoms and for medical stabilization. Patient treated with IV fluid resuscitation therapy, as well as IV antihypertensive therapy. No reports of fever, chills, chest pain, palpitation, adductive cough, skin rash, recent contact, known exposure to COVID-19. According to the chart, Patient has no history of smoking, alcohol or drug abuse. Patient awake, confused, agitated and thrashing around. Patient is on room air. O2 saturation 99%. Patient afebrile. No leukocytosis. Blood pressure 142/70, Pulse 81, Respirations 18. Chest xray done 04/14/22 reported No significant pulmonary or pleural abnormality. No pneumothorax. Patient is on S/C Lovenox and Famotidine. I saw this patient in telemetry. I spent critical care time of 40 minutes, reviewing the chart, examine the patient, review lab results, review chest xray, talking to the nursing staff and work up plan of treatment in this critically ill patient. - Patient Problems (1) Hypertensive emergency Current Visit: Yes Status: Acute Plan to address problem: Patients blood pressure came down to 142/70. Management as per primary care. (2) Hypokalemia Current Visit: Yes Status: Acute Plan to address problem: To days K+ 3.3. Continue supplement K+ and repeat BMP. (3) Hyponatremia Current Visit: Yes Status: Acute Plan to address problem: Todays Na+ 125. Patient is on I/V Sodium Bicarbonate solution, Management as per nephrology. (4) Metabolic encephalopathy Current Visit: Yes Status: Acute Plan to address problem: Management as per primary care. (5) Agitation Current Visit: Yes Status: Acute Plan to address problem: Patient is on [place]. Subjective Date of service: 04/18/22 Principal diagnosis: AMS; Severe hyponatremia; HTNsive emergency; Hypoth yroidism; Malnutrition Interval history: 72 YO Female with Malnutrition, Vascular Dementia, Cerebral Atherosclerosis presents to ED for evaluation. Patient is confused and lethargic with diminished cognition . Patient history taken from EMS staff, ED staff, as well as the patient's son.As per son the patient has experienced increased weakness over the past 1 month resulting in multiple falls. Patient was found to have increased weakness today. EMS was notified and upon arrival the patient was found to be in distress and subsequent transported to [facility] for further care and evaluation of the aforementioned symptoms. The patient was evaluated in the emergency department. Patient found to have blood pressure of 221/104 mmHg which is consistent with hypertensive emergency complicated by hypertensive encephalopathy, severe hyponatremia with a serum sodium of 113, metabolic encephalopathy, hypokalemia, and thyrotoxicosis. Patient admitted to ICU due to increased risk of worsening symptoms and for medical stabilization. Patient treated with IV fluid resuscitation therapy, as well as IV antihypertensive therapy. No reports of fever, chills, chest pain, palpitation, adductive cough, skin rash, recent contact, known exposure to COVID-19. According to the chart, Patient has no history of smoking, alcohol or drug abuse. Patient awake, confused, agitated and thrashing around. Patient is on room air. O2 saturation 99%. Patient afebrile. No leukocytosis. Blood pressure 142/70, Pulse 81, Respirations 18. Chest xray done 04/14/22 reported No significant pulmonary or pleural abnormality. No pneumothorax. Patient is on S/C Lovenox and Famotidine. Objective Vital Signs - 12hr 04/18/22 04/18/22 08:00 09:47 Temperature 98.4 F Pulse Rate 91 H 75 Respiratory 16 18 Rate Blood Pressure 145/62 O2 Sat by Pulse 96 97 Oximetry Constitutional: no acute distress, alert, other (Agitated.) Eyes: non-icteric, other (right eye enucleation) ENT: oropharynx moist Neck: supple, no lymphadenopathy, no JVD Effort: normal Ascultation: Bilateral: diminished breath sounds Percussion: Bilateral: not dull Cardiovascular: regular rate and rhythm Gastrointestinal: normoactive bowel sounds, soft, non-tender, non-distended Integumentary: normal Extremities: no cyanosis, no edema, pink and warm, pulses normal, no ischemia or petechiae Neurologic: normal mental status, non-focal exam, pupils equal and round, CN II- XII normal, motor strength normal and Psychiatric: anxious, other (Agitated, confused.) CBC and BMP: 04/17/22 06:38 04/18/22 10:30 ABG, PT/INR, D-dimer: PT/INR, D-dimer PT 13.1 Sec. (12.2-14.9) 04/14/22 16:16 INR 0.90 (0.87-1.13) 04/14/22 16:16 Abnormal lab findings: Abnormal Labs 04/14/22 04/14/22 04/14/22 15:57 16:16 16:16 WBC 3.4 L MCH MCHC 36 H Plt Count [place] % (Auto) 12.4 H Lymph # (Auto) 1.0 L Sodium 113 L* Potassium 3.2 L Chloride 75.6 L Carbon Dioxide Creatinine Glucose 153 H POC Glucose 130 H Uric Acid Calcium Magnesium Ammonia Total Protein 9.2 H TSH Free T4 Urine pH 04/14/22 04/14/22 04/15/22 16:16 16:16 04:38 WBC MCH MCHC 36 H Plt Count [place] % (Auto) 13.5 H Lymph # (Auto) 1.1 L Sodium Potassium Chloride Carbon Dioxide Creatinine Glucose POC Glucose Uric Acid Calcium Magnesium Ammonia 14.0 L Total Protein TSH 5.070 H Free T4 2.00 H Urine pH 04/15/22 04/15/22 04/15/22 04:38 08:03 11:32 WBC MCH MCHC Plt Count [place] % (Auto) Lymph # (Auto) Sodium 116 L* Potassium 2.8 L* Chloride 82.8 L Carbon Dioxide Creatinine 0.5 L Glucose POC Glucose 109 H Uric Acid Calcium 8.2 L Magnesium Ammonia Total Protein TSH Free T4 Urine pH 8.0 H 04/15/22 04/15/22 04/15/22 12:00 16:26 16:45 WBC MCH MCHC Plt Count [place] % (Auto) Lymph # (Auto) Sodium 113 L* 115 L* Potassium 3.0 L D Chloride 82.6 L 84.4 L Carbon Dioxide 20 L Creatinine 0.4 L 0.4 L Glucose 101 H 101 H POC Glucose 111 H Uric Acid Calcium 8.2 L 8.3 L Magnesium Ammonia Total Protein TSH Free T4 Urine pH 04/15/22 04/15/22 04/15/22 18:02 22:15 Unknown WBC MCH MCHC Plt Count [place] % (Auto) Lymph # (Auto) Sodium 117 L* 118 L* Potassium 2.9 L* Chloride 87.3 L 87.0 L Carbon Dioxide 17 L 18 L Creatinine 0.4 L 0.5 L Glucose 103 H POC Glucose Uric Acid 2.3 L Calcium 8.3 L 8.3 L Magnesium Ammonia Total Protein TSH Free T4 Urine pH 04/16/22 04/16/22 04/16/22 02:15 05:00 05:00 WBC MCH 33 H MCHC 37 H Plt Count 135 L [place] % (Auto) Lymph # (Auto) Sodium 118 L* 120 L Potassium 3.5 L 3.3 L Chloride 87.1 L 88.7 L Carbon Dioxide 17 L 18 L Creatinine 0.5 L 0.5 L Glucose POC Glucose Uric Acid Calcium 8.3 L 8.3 L Magnesium Ammonia Total Protein TSH Free T4 Urine pH 04/16/22 04/16/22 04/16/22 05:00 17:27 20:49 WBC MCH MCHC Plt Count [place] % (Auto) Lymph # (Auto) Sodium 117 L* Potassium 3.2 L Chloride 85.8 L Carbon Dioxide 16 L Creatinine Glucose 186 H POC Glucose Uric Acid Calcium 8.3 L Magnesium 2.40 H Ammonia Total Protein TSH Free T4 1.88 H Urine pH 04/17/22 04/17/22 04/17/22 06:38 06:38 10:06 WBC 3.8 L MCH 33 H MCHC 35 H Plt Count 112 L [place] % (Auto) 13.5 H Lymph # (Auto) 0.9 L Sodium 121 L 121 L Potassium 3.1 L 2.7 L* Chloride 92.1 L 92.5 L Carbon Dioxide 18 L 17 L Creatinine 0.5 L Glucose 104 H 209 H POC Glucose Uric Acid Calcium 8.1 L 7.8 L Magnesium Ammonia Total Protein TSH Free T4 Urine pH 04/17/22 04/18/22 04/18/22 12:49 09:49 10:30 WBC MCH MCHC Plt Count [place] % (Auto) Lymph # (Auto) Sodium 125 L Potassium 3.3 L Chloride 94.2 L Carbon Dioxide 20 L Creatinine Glucose 173 H POC Glucose 156 H 224 H Uric Acid Calcium 8.3 L Magnesium Ammonia Total Protein TSH Free T4 Urine pH 04/18/22 11:52 WBC MCH MCHC Plt Count [place] % (Auto) Lymph # (Auto) Sodium Potassium Chloride Carbon Dioxide Creatinine Glucose POC Glucose 148 H Uric Acid Calcium Magnesium Ammonia Total Protein TSH Free T4 Urine pH Chest x-ray: report reviewed, image reviewed Additional Studies: CHEST 1 VIEW 04/14/2022 3:46 PM INDICATION / CLINICAL INFORMATION: Hypoxia. COMPARISON: None available. FINDINGS: SUPPORT DEVICES: None. HEART / MEDIASTINUM: The heart size is borderline with a left ventricular configuration. Pulmonary vasculature is normal. The aorta is mildly tortuous without evidence of aneurysm. LUNGS / PLEURA: No significant pulmonary or pleural abnormality. No pneumothorax. ADDITIONAL FINDINGS: No significant additional findings. IMPRESSION: No acute findings. Allied health notes reviewed: nursing
--- NOTE | 2022-04-18 13:42 | Progress Note ---
Assessment and Plan Adult Failure To Thrive (AFTT) - Improving clinical status. F/u on po intake Electrolyte Imbalance - Replenish K, continue Bicarb drip & f/u resolving HypoNa & Metabolic Acidosis HTN - F/u on BP meds Hyperthyroidism - F/u labs on Metimazole Subjective Date of service: 04/18/22 Principal diagnosis: AMS; Severe hyponatremia; HTNsive emergency; Hypothyroidism; Malnutrition Objective - Vital Signs Vital signs: Vital Signs - 12hr 04/18/22 04/18/22 08:00 09:47 Temperature 98.4 F Pulse Rate 91 H 75 Respiratory 16 18 Rate Blood Pressure 145/62 O2 Sat by Pulse 96 97 Oximetry - General Appearance General appearance: other (+Arousal) EENT: PERRL Neck: no JVD Respiratory: Present: Other (Good air entry) Cardiology: regular, S1S2 Gastrointestinal: other (Soft) - Lab 04/17/22 06:38 04/18/22 10:30 Most recent lab results Calcium 8.3 mg/dL (8.4-10.2) L 04/18/22 10:30 Phosphorus 2.60 mg/dL (2.5-4.5) 04/17/22 06:38 Magnesium 1.90 mg/dL (1.7-2.3) 04/17/22 06:38 Medications & Allergies - Medications Allergies/Adverse Reactions: Allergies No Known Allergies Allergy (Unverified 04/14/22 17:04) Active Medications: Generic Name Dose Route Start Last Admin Trade Name Freq PRN Reason Stop Dose Admin Amlodipine Besylate 10 mg 04/16/22 11:00 04/18/22 11:04 Amlodipine 10 Mg Tab PO 10 mg QDAY ABDIAZIZ Administration Carvedilol 12.5 mg 04/16/22 11:00 04/18/22 11:04 Carvedilol 12.5 Mg Tab PO 12.5 mg BID ABDIAZIZ Administration Docusate Sodium 100 mg 04/16/22 22:00 04/18/22 11:04 Docusate Sodium 100 Mg Cap PO 100 mg BID ABDIAZIZ Administration Enoxaparin Sodium 40 mg 04/15/22 10:00 04/18/22 11:04 Enoxaparin 40 Mg/0.4 Ml Inj SUB-Q 40 mg QDAY ABDIAZIZ Administration Protocol Famotidine 20 mg 04/16/22 10:00 04/18/22 11:04 Famotidine 20 Mg Tab PO 20 mg QDAY ABDIAZIZ Administration Haloperidol Lactate 5 mg 04/18/22 10:00 Haloperidol Lactate 5 Mg/1 Ml Inj IM Q6H PRN Agitation Hydralazine HCl 10 mg 04/15/22 08:07 04/15/22 11:59 Hydralazine 20 Mg/1 Ml Inj IV 10 mg Q4HR PRN Administration Hypertension Sodium Bicarbonate 150 meq/ 1,150 mls @ 100 mls/hr 04/17/22 18:00 04/18/22 11:05 Sterile Water IV 100 mls/hr DIRECT ABDIAZIZ Administration Oxycodone/Acetaminophen 1 tab 04/14/22 18:37 04/17/22 23:22 Oxycodone /Acetaminophen 5-325mg Tab PO 1 tab Q16H PRN Administration Pain, Moderate (4-6) Potassium Chloride 40 meq 04/18/22 22:00 Potassium Chloride Er 20 Meq Tab PO BID ABDIAZIZ Quetiapine Fumarate 50 mg 04/18/22 22:00 Quetiapine 25 Mg Tab PO QHS ABDIAZIZ Sodium Chloride 10 ml 04/14/22 22:00 04/17/22 23:22 Sodium Chloride 0.9% 10 Ml Flush Syringe IV 10 ml BID ABDIAZIZ Administration Sodium Chloride 10 ml 04/14/22 18:37 Sodium Chloride 0.9% 10 Ml Flush Syringe IV PRN PRN LINE FLUSH
[2022-04-18] MEDS ORDERED: HALOPERIDOL LACTATE 5 MG/1 ML INJ IV ONE (14:00)
[2022-04-18] MEDS ORDERED: QUEtiapine 25 MG TAB PO SCH (22:00)
[2022-04-18] MEDS ORDERED: POTASSIUM CHLORIDE ER 20 MEQ TAB PO SCH (22:00)
[2022-04-19 04:48] LABS: Blood Urea Nitrogen 9 mg/dL (7-17); Calcium 8.5 mg/dL (8.4-10.2); Hemolysis Index 2
[2022-04-19 04:52] LABS: BUN/Creatinine Ratio 15
[2022-04-19] MEDS: SODIUM BICARBONATE 150 MEQ in WATER FOR INJECTION (PF) 1,000 ML IV SCH (05:33)
[2022-04-19] MEDS: FAMOTIDINE 20 MG TAB PO SCH (10:20)
[2022-04-19] MEDS: DOCUSATE SODIUM 100 MG CAP PO SCH (10:21)
[2022-04-19] MEDS: carvediloL 12.5 MG TAB PO SCH (10:21)
[2022-04-19] MEDS: amLODIPine 10 MG TAB PO SCH (10:21)
[2022-04-19 12:34] VITALS: BP 113/58
--- NOTE | 2022-04-19 13:08 | Progress Note ---
Assessment and Plan 72 YO Female with Malnutrition, Vascular Dementia, Cerebral Atherosclerosis presents to ED for evaluation. Patient is confused and lethargic with diminished cognition . Patient history taken from EMS staff, ED staff, as well as the patient's son.As per son the patient has experienced increased weakness over the past 1 month resulting in multiple falls. Patient was found to have increased weakness today. EMS was notified and upon arrival the patient was found to be in distress and subsequent transported to [facility] for further care and evaluation of the aforementioned symptoms. The patient was evaluated in the emergency department. Patient found to have blood pressure of 221/104 mmHg which is consistent with hypertensive emergency complicated by hypertensive encephalopathy, severe hyponatremia with a serum sodium of 113, metabolic encephalopathy, hypokalemia, and thyrotoxicosis. Patient admitted to ICU due to increased risk of worsening symptoms and for medical stabilization. Patient treated with IV fluid resuscitation therapy, as well as IV antihypertensive therapy. No reports of fever, chills, chest pain, palpitation, adductive cough, skin rash, recent contact, known exposure to COVID-19. Patient awake, confused, resting better today. Patient is on room air. O2 saturation 97%. Patient afebrile. No leukocytosis. Blood pressure 113/58, Pulse 79, Respirations 18. Chest xray done 04/14/22 reported No significant pulmonary or pleural abnormality. No pneumothorax. Patient is on Famotidine. Patients daughter is at bedside explained patients respiratory status. - Patient Problems (1) Hypertensive emergency Current Visit: Yes Status: Acute Plan to address problem: Patients blood pressure came down to 113/58. Management as per primary care. (2) Hypokalemia Current Visit: Yes Status: Acute Plan to address problem: To days K+ 3.3. recommend K+ supplementation and repeat BMP. (3) Hyponatremia Current Visit: Yes Status: Acute Plan to address problem: Todays Na+ 125. Management as per nephrology. (4) Metabolic encephalopathy Current Visit: Yes Status: Acute Plan to address problem: Management as per primary care. (5) Agitation Current Visit: Yes Status: Acute Plan to address problem: Patient is on Haldal. Subjective Date of service: 04/19/22 Principal diagnosis: AMS; Severe hyponatremia; HTNsive emergency; Hypothyroidism; Malnutrition Interval history: 72 YO Female with Malnutrition, Vascular Dementia, Cerebral Atherosclerosis presents to ED for evaluation. Patient is confused and lethargic with diminis hed cognition . Patient history taken from EMS staff, ED staff, as well as the patient's son.As per son the patient has experienced increased weakness over the past 1 month resulting in multiple falls. Patient was found to have increased weakness today. EMS was notified and upon arrival the patient was found to be in distress and subsequent transported to [facility] for further care and evaluation of the aforementioned symptoms. The patient was evaluated in the emergency department. Patient found to have blood pressure of 221/104 mmHg which is consistent with hypertensive emergency complicated by hypertensive encephalopathy, severe hyponatremia with a serum sodium of 113, metabolic encephalopathy, hypokalemia, and thyrotoxicosis. Patient admitted to ICU due to increased risk of worsening symptoms and for medical stabilization. Patient treated with IV fluid resuscitation therapy, as well as IV antihypertensive therapy. No reports of fever, chills, chest pain, palpitation, adductive cough, skin rash, recent contact, known exposure to COVID-19. According to the chart, Patient has no history of smoking, alcohol or drug abuse. Patient awake, confused, resting better today. Patient is on room air. O2 saturation 97%. Patient afebrile. No leukocytosis. Blood pressure 113/58, Pulse 79, Respirations 18. Chest xray done 04/14/22 reported No significant pulmonary or pleural abnormal ity. No pneumothorax. Patient is on Famotidine. Patients daughter is at bedside explained patients respiratory status. Objective Vital Signs - 12hr 04/19/22 04/19/22 04/19/22 03:34 04:00 08:11 Temperature 97.3 F L 97.8 F Pulse Rate 52 L 57 L 79 Respiratory 16 18 Rate Blood Pressure 157/82 157/84 O2 Sat by Pulse 98 98 Oximetry 04/19/22 11:49 Temperature 97.6 F Pulse Rate 79 Respiratory 18 Rate Blood Pressure 113/58 O2 Sat by Pulse 97 Oximetry Constitutional: no acute distress, alert, other (agitation ) Eyes: non-icteric, other (right eye enucleation) ENT: oropharynx moist Neck: supple, no lymphadenopathy, no JVD Effort: normal Ascultation: Right: clear Percussion: Bilateral: not dull Cardiovascular: regular rate and rhythm Gastrointestinal: normoactive bowel sounds, soft, non-tender, non-distended Integumentary: normal Extremities: no cyanosis, no edema, pink and warm, pulses normal, no ischemia or petechiae Neurologic: normal mental status, non-focal exam, pupils equal and round, CN II- XII normal, motor strength normal and Psychiatric: anxious, other (Agitated, confused.) CBC and BMP: 04/17/22 06:38 04/19/22 04:06 ABG, PT/INR, D-dimer: PT/INR, D-dimer PT 13.1 Sec. (12.2-14.9) 04/14/22 16:16 INR 0.90 (0.87-1.13) 04/14/22 16:16 Abnormal lab findings: Abnormal Labs 04/14/22 04/14/22 04/14/22 15:57 16:16 16:16 WBC 3.4 L MCH MCHC 36 H Plt Count [place] % (Auto) 12.4 H Lymph # (Auto) 1.0 L Sodium 113 L* Potassium 3.2 L Chloride 75.6 L Carbon Dioxide Creatinine Glucose 153 H POC Glucose 130 H Uric Acid Calcium Magnesium Ammonia Total Protein 9.2 H TSH Free T4 Urine pH 04/14/22 04/14/22 04/15/22 16:16 16:16 04:38 WBC MCH MCHC 36 H Plt Count [place] % (Auto) 13.5 H Lymph # (Auto) 1.1 L Sodium Potassium Chloride Carbon Dioxide Creatinine Glucose POC Glucose Uric Acid Calcium Magnesium Ammonia 14.0 L Total Protein TSH 5.070 H Free T4 2.00 H Urine pH 04/15/22 04/15/22 04/15/22 04:38 08:03 11:32 WBC MCH MCHC Plt Count [place] % (Auto) Lymph # (Auto) Sodium 116 L* Potassium 2.8 L* Chloride 82.8 L Carbon Dioxide Creatinine 0.5 L Glucose POC Glucose 109 H Uric Acid Calcium 8.2 L Magnesium Ammonia Total Protein TSH Free T4 Urine pH 8.0 H 04/15/22 04/15/22 04/15/22 12:00 16:26 16:45 WBC MCH MCHC Plt Count [place] % (Auto) Lymph # (Auto) Sodium 113 L* 115 L* Potassium 3.0 L D Chloride 82.6 L 84.4 L Carbon Dioxide 20 L Creatinine 0.4 L 0.4 L Glucose 101 H 101 H POC Glucose 111 H Uric Acid Calcium 8.2 L 8.3 L Magnesium Ammonia Total Protein TSH Free T4 Urine pH 04/15/22 04/15/22 04/15/22 18:02 22:15 Unknown WBC MCH MCHC Plt Count [place] % (Auto) Lymph # (Auto) Sodium 117 L* 118 L* Potassium 2.9 L* Chloride 87.3 L 87.0 L Carbon Dioxide 17 L 18 L Creatinine 0.4 L 0.5 L Glucose 103 H POC Glucose Uric Acid 2.3 L Calcium 8.3 L 8.3 L Magnesium Ammonia Total Protein TSH Free T4 Urine pH 04/16/22 04/16/22 04/16/22 02:15 05:00 05:00 WBC MCH 33 H MCHC 37 H Plt Count 135 L [place] % (Auto) Lymph # (Auto) Sodium 118 L* 120 L Potassium 3.5 L 3.3 L Chloride 87.1 L 88.7 L Carbon Dioxide 17 L 18 L Creatinine 0.5 L 0.5 L Glucose POC Glucose Uric Acid Calcium 8.3 L 8.3 L Magnesium Ammonia Total Protein TSH Free T4 Urine pH 04/16/22 04/16/22 04/16/22 05:00 17:27 20:49 WBC MCH MCHC Plt Count [place] % (Auto) Lymph # (Auto) Sodium 117 L* Potassium 3.2 L Chloride 85.8 L Carbon Dioxide 16 L Creatinine Glucose 186 H POC Glucose Uric Acid Calcium 8.3 L Magnesium 2.40 H Ammonia Total Protein TSH Free T4 1.88 H Urine pH 04/17/22 04/17/22 04/17/22 06:38 06:38 10:06 WBC 3.8 L MCH 33 H MCHC 35 H Plt Count 112 L [place] % (Auto) 13.5 H Lymph # (Auto) 0.9 L Sodium 121 L 121 L Potassium 3.1 L 2.7 L* Chloride 92.1 L 92.5 L Carbon Dioxide 18 L 17 L Creatinine 0.5 L Glucose 104 H 209 H POC Glucose Uric Acid Calcium 8.1 L 7.8 L Magnesium Ammonia Total Protein TSH Free T4 Urine pH 04/17/22 04/18/22 04/18/22 12:49 09:49 10:30 WBC MCH MCHC Plt Count [place] % (Auto) Lymph # (Auto) Sodium 125 L Potassium 3.3 L Chloride 94.2 L Carbon Dioxide 20 L Creatinine Glucose 173 H POC Glucose 156 H 224 H Uric Acid Calcium 8.3 L Magnesium Ammonia Total Protein TSH Free T4 Urine pH 04/18/22 04/18/22 04/18/22 11:52 15:45 23:47 WBC MCH MCHC Plt Count [place] % (Auto) Lymph # (Auto) Sodium Potassium Chloride Carbon Dioxide Creatinine Glucose POC Glucose 148 H 117 H 111 H Uric Acid Calcium Magnesium Ammonia Total Protein TSH Free T4 Urine pH 04/19/22 04:06 WBC MCH MCHC Plt Count [place] % (Auto) Lymph # (Auto) Sodium 125 L Potassium Chloride 91.4 L Carbon Dioxide Creatinine Glucose POC Glucose Uric Acid Calcium Magnesium Ammonia Total Protein TSH Free T4 Urine pH Allied health notes reviewed: nursing
--- NOTE | 2022-04-19 13:12 | Discharge Summary ---
Providers - Providers Date of Admission: 04/14/22 18:36 Date of discharge: 04/19/22 Attending physician: LORI RUTH MD 04/14/22 18:32 Consult to Physician [CONS] Routine Comment: Consulting Provider: ERICKSON PEDROZA Physician Instructions: Reason For Exam: severe hyponatremia 04/14/22 18:37 Consult to Physician [CONS] Routine Comment: Consulting Provider: MAGDA IRENE Physician Instructions: Reason For Exam: hypertensive emergency/ 04/15/22 17:28 Consult to Dietitian/Nutrition [CONS] Routine Physician Instructions: Reason For Exam: Reason for Consult: Malnutrition 04/16/22 12:33 Occupational Therapy Evaluate and Treat [CONS] Routine Comment: Reason For Exam: multiple falls at home Physical Therapy Evaluation and Treat [CONS] Routine Comment: Reason For Exam: multiple falls at home Primary care physician: NOVA ACOSTA Hospitalization Reason for admission: Altered mental status Condition: Fair Hospital course: Interval history: This is a 72-year-old female with malnutrition, vascular dementia, cerebral atherosclerosis who presented to emergency department on 04/14 with confusion and lethargy per EMS. Per son patient experienced increased weakness over the past month resulting in multiple falls. In the emergency department blood pressure was 221/104 consistent with hypertensive emergency complicated by hypertensive encephalopathy, lab work showed severe hyponatremia with a sodium of 113, hypokalemia and thyrotoxicosis. Patient was admitted to the hospitalist service to the ICU with consults to CCM and nephrology with hypertensive emergency, severe hyponatremia, hypokalemia, hypertensive encephalopathy syndrome and thyrotoxicosis. Hospital Course to Date: 04/15: Drowsy but AAO, stable on RA. off cardene gtt this am, VSS. Remains on NS gtt, sodium back down to 113. 3% saline initiated at 20ml/hr, serial BMP Q4hr. Nephrology is also following. Tight BP control, PRN hydralazine for SBP greater than 160. Resume home meds when list is available. K repleted, monitor and replace electrolytes as needed. [facility] is also following. 04/16: Patient was awake and alert, Polish speaking and son at bedside as baker biscuit. Sodium 120. S/p 3% normal saline. Patient will be transferred to IM. Remains off Cardene drip and antihypertensive regimen titrated. 04/17: No acute complaints. Daughter states patient mentation at baseline. K=2.7, KCL 40 MEQ IV + 40 MEQ PO ordered. repeat K this evening. Sodium improved 117- >121. Continue NS infusion, if patient continues improvement, may consider d/c tomorrow or . PT/OT eval pending. Family states they would like patient to return home so will discuss home health care with CM if patient qualifies. 04/18: Metabolic markers improved, k= 4.1 overnight and now 3.3. Will order scheduled KCL. sodium improved to 125. Aggitated overnight, suspect language barrier and ativan made aggitation worse. Initiated on seroquel qhs. Added haldol prn aggitation. D/w family who was at bedside today's plan and goal for potential d/c tomorrow. 04/19. Improved metabolic markers. Not aggitated especially when family in room. Some concern about PO intake but family care team state that patient does not like hospital food. Patient does eat all of the food that is provided by the family. I advised the patient son to continue to encourage the patient to hydrate orally and increase p.o. intake of nutrition. I also recommended nutritional supplements due to her frail state. Patient will be discharged home and has superb family support system. We will recommend she follow-up with her primary care physician in 3 to 5 days. Recommend follow-up BMP in 1 to 2 weeks. Assessment and plan: This is a 72-year-old female with HTN, vascular dementia, cerebral atherosclerosis, and malnutrition admitted for severe hyponatremia and Hypertensive emergency s/p cardene gtt Neuro: Hypertensive encephalopathy, h/o vascular dementia, cerebral atherosclerosis -Polish speaking speaking -Reorientation as needed -Maintain sleep-wake cycle -As needed analgesia -CT head shows no intracerebral hemorrhage or stroke mimics, no chronic sequela from trauma, extensive periventricular low-attenuation areas due to chronic small vessel disease -CT head/neck with no significant abnormality -PT/OT consulted Cardiac: s/p hypertensive emergency, h/o hypertension -Presented with a blood pressure of 221/104 -Per family patient is compliant with medications -S/p Cardene drip -Antihypertension regimen: Coreg, amlodipine -PO hydral dc by nephro -PRN IV Hydral -Blood pressure monitoring per protocol Respiratory: NAD -Supplemental oxygen as needed -Pulmonary hygiene -SPO2 monitor per protocol GI: Malnutrition -Passed bedside swallow -Mechanical soft diet -24 hours +596 mL -PPI -BR: Colace : Severe hyponatremia, hypokalemia, hypochloremia, metabolic acidosis -Presented with a sodium of 113, potassium 3.2, chloride of 75.6 -CCM and Nephrology consulted, appreciate recommendations -S/p 3% saline -NS at 125 -Monitor intake and output -Renally dose medications -Avoid nephrotoxic medications -Replete with IV and p.o. potassium -Trend BMP ID: NAD -Monitor WBC and temperature curve Endo: Thyrotoxicosis -Admit TSH 5.607, free T4 2 -Methimazole -Avoid hypoglycemia -SSI -Accu-Cheks q. 6 Heme: Thrombocytopenia -Trend CBC -Transfuse hemoglobin less than 7 -SCDs to BLE while in bed #Advance care planning Disease education conducted, care plan discussed, diagnoses discussed, prognosis discussed, patient is full code, patient acknowledges understanding and agree with care plan, +30 minutes. Disposition: HOME / SELF CARE / HOMELESS Final Discharge Diagnosis (Prints w/discharge instructions): acute metabolic encephalopathy, hyponatremia, hypokalemia Time spent for discharge: 35 Core Measure Documentation - Palliative Care Palliative Care/ Comfort Measures: Not Applicable - Core Measures Any of the following diagnoses?: none Exam - Physical Exam Narrative exam: General appearance: Present: no acute distress, cachectic - EENT Eyes: Present: PERRL, EOM intact ENT: hearing intact, clear oral mucosa, dentition normal - Neck Neck: Present: normal ROM - Respiratory Respiratory effort: normal Respiratory: bilateral: CTA - Cardiovascular Rhythm: regular Heart Sounds: Present: S1 & S2. Absent: systolic murmur, diastolic murmur - Extremities Extremities: no ischemia, pulses intact, pulses symmetrical, No edema, normal temperature, normal color Peripheral Pulses: within normal limits - Abdominal General gastrointestinal: soft, non-tender, non-distended, normal bowel sounds - Integumentary Integumentary: Present: warm (swelling to right orbit from fall sustained at home), dry - Neurologic Neurologic: CNII-XII intact, no focal deficits, moves all extremities - Allied Health Allied health notes reviewed: nursing, RT, social work - Constitutional Vitals: Temp Pulse Resp BP Pulse Ox 97.6 F 79 18 113/58 97 04/19/22 11:49 04/19/22 11:49 04/19/22 11:49 04/19/22 11:49 04/19/22 11:49 Plan Follow up with: NOVA ACOSTA MD [Primary Care Provider] - 3-5 Days
--- NOTE | 2022-04-19 14:37 | Progress Note ---
Assessment and Plan Adult Failure To Thrive (AFTT) - Improving clinical status. F/u po intake Electrolyte Imbalance - Persistent HypoNa. D/c IVF, give ADH antagonist & f/u. Resolved Metabolic Acidosis & HypoK HTN - Decrease BP med & f/u Hyperthyroidism - F/u labs on Metimazole Subjective Date of service: 04/19/22 Principal diagnosis: AMS; Severe hyponatremia; HTNsive emergency; Hypothyroi dism; Malnutrition Interval history: Feeling better, improving po intake Objective - Vital Signs Vital signs: Vital Signs - 12hr 04/19/22 04/19/22 04/19/22 03:34 04:00 08:00 Temperature 97.3 F L Pulse Rate 52 L 57 L 79 Respiratory 16 Rate Blood Pressure 157/82 O2 Sat by Pulse 98 Oximetry 04/19/22 04/19/22 04/19/22 08:11 10:00 11:49 Temperature 97.8 F 97.6 F Pulse Rate 79 79 Respiratory 18 18 Rate Blood Pressure 157/84 113/58 O2 Sat by Pulse 98 96 97 Oximetry - General Appearance General appearance: other (Awake & alert) EENT: PERRL Neck: no JVD Respiratory: Present: Other (Good air entry) Cardiology: regular, S1S2 Gastrointestinal: other (Soft) Neurologic: no focal deficit, alert and oriented x3 - Lab 04/17/22 06:38 04/19/22 04:06 Most recent lab results Calcium 8.5 mg/dL (8.4-10.2) 04/19/22 04:06 Phosphorus 2.80 mg/dL (2.5-4.5) 04/19/22 04:06 Magnesium 1.80 mg/dL (1.7-2.3) 04/19/22 04:06 Medications & Allergies - Medications Allergies/Adverse Reactions: Allergies No Known Allergies Allergy (Unverified 04/14/22 17:04) Active Medications: Generic Name Dose Route Start Last Admin Trade Name Freq PRN Reason Stop Dose Admin Amlodipine Besylate 10 mg 04/16/22 11:00 04/19/22 10:21 Amlodipine 10 Mg Tab PO 10 mg QDAY ABDIAZIZ Administration Carvedilol 12.5 mg 04/16/22 11:00 04/19/22 10:21 Carvedilol 12.5 Mg Tab PO 12.5 mg BID ABDIAZIZ Administration Docusate Sodium 100 mg 04/16/22 22:00 04/19/22 10:21 Docusate Sodium 100 Mg Cap PO 100 mg BID ABDIAZIZ Administration Famotidine 20 mg 04/16/22 10:00 04/19/22 10:20 Famotidine 20 Mg Tab PO 20 mg QDAY ABDIAZIZ Administration Haloperidol Lactate 5 mg 04/18/22 10:00 Haloperidol Lactate 5 Mg/1 Ml Inj IM Q6H PRN Agitation Hydralazine HCl 10 mg 04/15/22 08:07 04/15/22 11:59 Hydralazine 20 Mg/1 Ml Inj IV 10 mg Q4HR PRN Administration Hypertension Sodium Bicarbonate 150 meq/ 1,150 mls @ 100 mls/hr 04/17/22 18:00 04/19/22 05 :33 Sterile Water IV 100 mls/hr DIRECT ABDIAZIZ Administration Oxycodone/Acetaminophen 1 tab 04/14/22 18:37 04/17/22 23:22 Oxycodone /Acetaminophen 5-325mg Tab PO 1 tab Q16H PRN Administration Pain, Moderate (4-6) Quetiapine Fumarate 50 mg 04/18/22 22:00 04/18/22 21:18 Quetiapine 25 Mg Tab PO 50 mg QHS ABDIAZIZ Administration Sodium Chloride 10 ml 04/14/22 22:00 04/18/22 21:24 Sodium Chloride 0.9% 10 Ml Flush Syringe IV 10 ml BID ABDIAZIZ Administration Sodium Chloride 10 ml 04/14/22 18:37 Sodium Chloride 0.9% 10 Ml Flush Syringe IV PRN PRN LINE FLUSH
[2022-04-19] MEDS ORDERED: amLODIPine 5 MG TAB PO SCH (16:00)
[2022-04-19] MEDS ORDERED: TOLVAPTAN 15 MG TAB PO ONE (16:00)
== END 2022-04-19 17:55 | disposition home health service (06) | DRG 77 ==
LOC: ED 15:32 → CC1 18:36 → 4A 04-16 22:57
PROVIDERS: ADMIT Internal Medicine; ATTEND Internal Medicine
PROC: 06HM33Z Insertion of Infusion Device into Right Femoral Vein, Percutaneous Approach (ICD-10-PCS; principal; 2022-04-14)
PROC: B54BZZA Ultrasonography of Right Lower Extremity Veins, Guidance (ICD-10-PCS; 2022-04-14)
DX: I67.4 Hypertensive encephalopathy (principal); E43 Unspecified severe protein-calorie malnutrition; G92.8 Other toxic encephalopathy; I16.1 Hypertensive emergency; E87.1 Hypo-osmolality and hyponatremia; E87.2 Acidosis; E05.90 Thyrotoxicosis, unspecified without thyrotoxic crisis or storm; D69.6 Thrombocytopenia, unspecified; F01.50 Vascular dementia, unspecified severity, without behavioral disturbance, psychotic disturbance, mood disturbance, and anxiety; I67.2 Cerebral atherosclerosis; E87.6 Hypokalemia; Z68.20 Body mass index [BMI] 20.0-20.9, adult; R62.7 Adult failure to thrive; E87.8 Other disorders of electrolyte and fluid balance, not elsewhere classified
CPT/HCPCS: 36415; 70450; 70496; 70498; 71045; 80048; 80053; 81001; 82140; 82550; 82553; 82962; 83735; 83930; 83935; 84100; 84132; 84439; 84443; 84484; 84550; 85025; 85027; 85610; 85730; 87040; 87086; 93005; G0378; J3490; J0360; J1630; J1650; J3475; J3480; J7030; J7050; Q9967